=== PATIENT | female | born 1965 | race Caucasian/White ===

== ENCOUNTER 2017-12-27 06:03 | Day surgery (SDC) | payer OTHER ==
[~2017-12-27 06:03] MED LIST: Lactated Ringers 1,000 ML IV SCH
[2017-12-27] MEDS ORDERED: DIPRIVAN 200 MG/20 ML IV ONE (06:04)
[2017-12-27] MEDS ORDERED: Versed 2 MG/2 ML Injection IV ONE (06:04)
[2017-12-27] MEDS ORDERED: Lactated Ringers 1,000 ML IV ONE (06:04)
--- NOTE | 2017-12-27 08:45 | OP ---
SURGERY DATE/TIME: 12/27/2017 0757 PREOPERATIVE DIAGNOSIS: Screening exam. POSTOPERATIVE DIAGNOSIS: Normal colon. PROCEDURE: Colonoscopy. SURGEON: Dr. Harden. ANESTHESIA: MAC. Medications given by anesthesia department. HISTORY: The patient is a 52 year-old white female presenting now for screening colonoscopy. She was appraised of the risks of the procedure including the risk of perforation, phlebitis, untoward reaction to medication, bleeding and missed lesions. The patient verbalized her understanding and desired to have the procedure performed. DESCRIPTION OF PROCEDURE: The patient was given the medications by the anesthesia department. She had continuous pulse oximetry, ECG monitoring, intermittent blood pressure monitoring, and tidal CO2 monitoring during the examination. She was placed in the left lateral decubitus position. A digital rectal examination was performed and revealed normal anal sphincter tone and no masses. The flexible Olympus pediatric colonoscope was used to intubate the rectum. A view of the colon was developed sequentially to the cecum. Upon insertion and withdrawal, including a retroflex view in the rectum, no mucosal lesions were encountered. The scope was removed from the patient who tolerated the procedure well and was sent back to OP recovery in good condition. The prep was noted to be fair to good.
[2017-12-27 10:24] VITALS: O2SAT 98
[2017-12-27 10:34] VITALS: BP 181/87; PULSE 77
[2017-12-27 11:06] LABS: ANION GAP 12.6 MEQ/L (5-15); BLOOD UREA NITROGEN 11 mg/dl (7-17); CHLORIDE 102 mEq/L (98-107); Calcium 9.1 mg/dL (8.4-10.2); Carbon Dioxide 29 mmol/L (22-30); Cholesterol 202 mg/dl (50-200); Creatinine 1 0.85 mg/dl (0.52-1.04); Glucose 115 mg/dL (74-106); HDL CHOLESTEROL 46 mg/dl (40-60); Potassium 4.5 mmol/L (3.5-5.1); Risk Ratio 4.4; SODIUM 139 mmol/L (137-145); TRIGLYCERIDE 143 mg/dl (30-150)
[2017-12-27 11:16] LABS: LDL, DIRECT 120.45 mg/dL (30-100)
== END 2017-12-27 09:30 | disposition home or self-care (01) ==
LOC: SDC 06:03
PROVIDERS: ATTEND Family Medicine
PROC: 0DJD8ZZ Inspection of Lower Intestinal Tract, Via Natural or Artificial Opening Endoscopic (ICD-10-PCS; principal; 2017-12-27)
DX: Z12.11 Encounter for screening for malignant neoplasm of colon (principal); I10 Essential (primary) hypertension
CPT/HCPCS: 36415; 80048; 80061; 83721; J2250; J2704

== ENCOUNTER 2018-07-12 07:39 | Emergency (ER) | payer OTHER ==
[2018-07-12] MEDS ORDERED: solu-MEDROL 125 MG IV ONE (07:56)
[2018-07-12] MEDS ORDERED: DUONEB 0.5-3 MG/3 ml Neb IH ONE ×2 (07:56→08:08)
--- NOTE | 2018-07-12 07:56 | ERPHSYRPT ---
- History of Present Illness Time Seen by Provider: 07/12/18 07:52 Source: patient Exam Limitations: no limitations Patient Subjective Stated Complaint: patient experiencing shortness of breath this mornign has been having trouble for two days using nebulizers treatments at home and this morning it got reall bad Triage Nursing Assessment: pt alert and orietnedx3, able to ambualte by self skin warm and diaphoretic and intact. pupils perra 2, lung sounds some wheezes on right side on expiration. Physician History: The patient is a 53-year-old female who has worsening cough and shortness of breath for 3 days. Today it is particularly bad with shortness of breath. Pt took an albuterol neb 3 hrs ago without relief. She has a history of asthma. She smokes cigarettes. She has not smoked now for 3 days. She denies chest pain. She denies fever. Her past medical history is significant for asthma, hypertension, diabetes, and anxiety. Timing/Duration: day(s) (3), gradual onset, worse Activities at Onset: none Severity of Dyspnea-Max: moderate Severity of Dyspnea-Current: moderate Possible Cause: occasional episodes, smoke exposure Modifying Factors: Improves With: albuterol nebulizer Associated Symptoms: cough, tightness Allergies/Adverse Reactions: Sulfa (Sulfonamide Antibiotics) [Sulfa(Sulfonamide Antibiotics)] Allergy ( Verified 12/27/17 06:28) sumatriptan [From Imitrex] Allergy (Verified 12/27/17 06:28) Home Medications: Albuterol Sulfate [Proair Hfa] 8.5 gm IH 5XD 05/26/15 [History] Alprazolam 0.25 mg [xanAX 0.25 MG] 0.25 mg PO TIDPRN 05/26/15 [History] Black Cohosh 40 mg PO BID 05/26/15 [History] Paroxetine HCl [Paxil Cr] 37.5 mg PO DAILY 05/26/15 [History] Benazepril HCl [Lotensin] 20 mg PO DAILY 12/19/17 [History] Lactobacillus Combo No.10 [Probiotic] 1 each PO DAILY 12/19/17 [History] Nifedipine [Nifedipine ER] 90 mg PO DAILY 12/19/17 [History] Metformin HCl 500 mg [Glucophage 500 MG] 500 mg PO BIDWM 07/12/18 [History ] Hx Tetanus, Diphtheria Vaccination/Date Given: Yes Hx Influenza Vaccination/Date Given: No Hx Pneumococcal Vaccination/Date Given: No Immunizations Up to Date: Yes - Review of Systems Constitutional: No Fever, No Chills Eyes: No Symptoms Ears, Nose, & Throat: No Symptoms Respiratory: Cough, Dyspnea, Dyspnea on Exertion (ANTHONY), Wheezing Cardiac: No Chest Pain, No Edema, No Syncope Abdominal/Gastrointestinal: No Abdominal Pain, No Nausea, No Vomiting, No Diarrhea Genitourinary Symptoms: No Dysuria Musculoskeletal: No Back Pain, No Neck Pain Skin: No Rash Neurological: No Dizziness, No Focal Weakness, No Sensory Changes Psychological: No Symptoms Endocrine: No Symptoms Hematologic/Lymphatic: No Symptoms Immunological/Allergic: No Symptoms All Other Systems: Reviewed and Negative - Past Medical History Pertinent Past Medical History: Yes Neurological History: Epilepsy, Migraines ENT History: No Pertinent History Cardiac History: Hypertension Respiratory History: Asthma Endocrine Medical History: No Pertinent History Musculoskeletal History: Osteoarthritis GI Medical History: No Pertinent History History: No Pertinent History Psycho-Social History: Depression Female Reproductive Disorders: No Pertinent History Other Medical History: L knee replacement - Past Surgical History Past Surgical History: Yes Neuro Surgical History: No Pertinent History Cardiac: No Pertinent History Respiratory: No Pertinent History Gastrointestinal: Cholecystectomy Genitourinary: No Pertinent History Musculoskeletal: Orthopedic Surgery Female Surgical History: Section, Hysterectomy Other Surgical History: L KNEE REPLACEMENT - Social History Smoking Status: Current every day smoker How long have you smoked: 20 YEARS Exposure to second hand smoke: Yes Alcohol Use: Socially Drug Use: none Patient Lives Alone: No Significant Family History: other - Female History Hx Now: No - Nursing Vital Signs Nursing Vital Signs: Initial Vital Signs Temperature 97.4 F 07/12/18 07:40 Respiratory Rate 26 H 07/12/18 07:40 Blood Pressure 173/128 07/12/18 07:40 O2 Sat by Pulse Oximetry 98 07/12/18 07:40 Pain Scale Pain Intensity 0 - Physical Exam General Appearance: mild distress Eye Exam: PERRL/EOMI Ears, Nose, Throat Exam: hearing grossly normal Neck Exam: normal inspection, supple Respiratory Exam: diminished breath sounds, prolonged expirations Cardiovascular/Chest Exam: normal heart sounds, regular rate/rhythm Abdominal/Gastrointestinal Exam: soft, No tenderness, No distention, No mass Rectal Exam: not done Extremity Exam: non-tender, normal range of motion, normal inspection, no calf tenderness, no pedal edema Neurologic Exam: alert, oriented x 3, cooperative, mirror machine feeder II-XII nml as tested, sensation nml, No motor deficits Skin Exam: normal color, warm, No dry, No cyanosis, No diaphoresis SpO2 Interpretation: normal SpO2: 98 Oxygen Delivery: Room Air - Radiology Exams Chest X-ray Interpretation: Interpreted by me, Negative (comp AP chest 03/11/14.) Ordered Tests: Active Orders 24 hr Category Date Time Status Parts Salesperson STAT Care 07/12/18 07:57 Ordered IV Insertion STAT Care 07/12/18 07:56 Ordered Oxygen-ED Only NASAL CANNULA 2 lpm Care 07/12/18 07:56 Ordered Pulse Oximetry (ED) STAT Care 07/12/18 07:56 Ordered CHEST 2 VIEWS (PA AND LAT) Stat Exams 07/12/18 07:56 Ordered CBC W DIFF Stat Lab 07/12/18 07:56 Ordered CMP Stat Lab 07/12/18 07:56 Ordered NT PRO BNP Stat Lab 07/12/18 07:56 Ordered TROPONIN Q3H Lab 07/12/18 08:00 Ordered TROPONIN Q3H Lab 07/12/18 11:00 Ordered TROPONIN Q3H Lab 07/12/18 14:00 Ordered TROPONIN Q3H Lab 07/12/18 17:00 Ordered TROPONIN Q3H Lab 07/12/18 20:00 Ordered Peak Expiratory Flow Rate ONCE RT 07/12/18 08:13 Completed Respiratory Nebulizer STAT RT 07/12/18 07:57 Ordered Respiratory Therapy Assessment DAILY RT 07/12/18 08:13 Completed Medication Summary Generic Name Dose Route Start Last Admin Trade Name Freq PRN Reason Stop Dose Admin Benazepril HCl 20 mg 07/12/18 09:01 Lotensin 10 Mg PO 07/12/18 09:02 QAM STA Discontinued Medications Generic Name Dose Route Start Last Admin Trade Name Freq PRN Reason Stop Dose Admin Albuterol/Ipratropium 3 ml 07/12/18 07:56 07/12/18 08:12 Duoneb 0.5-3 Mg/3 Ml Neb IH 07/12/18 07:57 3 ml STAT ONE Administration Albuterol/Ipratropium Confirm 07/12/18 08:08 Duoneb 0.5-3 Mg/3 Ml Neb Administered 07/12/18 08:09 Dose 3 ml IH .STK-MED ONE Methylprednisolone Sodium Succinate 125 mg 07/12/18 07:56 07/12/18 08:06 Solu-Medrol 125 Mg IV 07/12/18 07:57 125 mg STAT ONE Administration Methylprednisolone Sodium Succinate Confirm 07/12/18 08:03 Solu-Medrol 125 Mg Administered 07/12/18 08:04 Dose 125 mg .ROUTE .STK-MED ONE Lab/Rad Data: Laboratory Result Diagrams 07/12/18 08:00 07/12/18 08:00 Laboratory Results 07/12/18 07/12/18 07/12/18 Range/Units 08:00 08:00 08:00 WBC 8.8 (4.0-10.5) K/mm3 RBC 4.96 (4.1-5.4) M/mm3 Hgb 13.8 (12.0-16.0) gm/dl Hct 42.9 (35-47) % MCV 86.5 (78-100) fl MCH 27.8 (26-32) pg MCHC 32.2 (32-36) g/dl RDW 15.5 H (11.5-14.0) % Plt Count 271 (150-450) K/mm3 MPV 8.9 (6-9.5) fl Gran % 65.5 (36.0-66.0) % Eos # (Auto) 0.51 H (0-0.5) Absolute Lymphs (auto) 1.85 (1.0-4.6) Absolute Monos (auto) 0.67 (0.0-1.3) Lymphocytes % 21.0 L (24.0-44.0) % Monocytes % 7.6 (0.0-12.0) % Eosinophils % 5.8 H (0.00-5.0) % Basophils % 0.1 (0.0-0.4) % Absolute Granulocytes 5.79 (1.4-6.9) Basophils # 0.01 (0-0.4) Sodium 138 (137-145) mmol/L Potassium 3.5 (3.5-5.1) mmol/L Chloride 100 (98-107) mmol/L Carbon Dioxide 28 (22-30) mmol/L Anion Gap 13.0 (5-15) MEQ/L BUN 7 (7-17) mg/dL Creatinine 0.77 (0.52-1.04) mg/dL Estimated GFR > 60.0 ML/MIN Glucose 184 H (74-106) mg/dL Calcium 8.5 (8.4-10.2) mg/dL Total Bilirubin 0.50 (0.2-1.3) mg/dL AST 15 (14-36) U/L ALT 16 (0-35) U/L Alkaline Phosphatase 146 H (38-126) U/L Troponin I < 0.012 (0.000-0.034) ng/mL NT-Pro-B Natriuret Pep 766 (0-900) pg/mL Serum Total Protein 7.2 (6.3-8.2) g/dL Albumin 3.9 (3.5-5.0) g/dL - Progress Progress: improved Air Movement: good Progress Note: 07/12/18 09:02 Pt given duo neb treatment and solumedrol 125 mg IV. Pt breathing has improved. Blood Culture(s) Obtained: No Antibiotics given: No Counseled pt/family regarding: lab results, diagnosis, need for follow-up, rad results - Departure Time of Disposition: 09: Departure Disposition: Home Clinical Impression: Asthma exacerbation, Hypertension Condition: Stable Critical Care Time: No Referrals: ALEC EL [Primary Care Provider] - Additional Instructions: You have an exacerbation of asthma. You were given a DuoNeb treatment and Solu- Medrol 125 mg IV in the ER. Your blood pressure was also elevated this morning because you did not take your daily medicines for high blood pressure. You were given been as well 20 mg orally in the ER. Take prednisone 60 mg daily for 5 days and take ciprofloxacin 500 mg 2 times a day for 7 days. Follow-up on Saturday with your primary medical doctor. Prescriptions: Ciprofloxacin [Cipro 500 MG] 1 tab PO BID #14 tablet Prednisone 20 mg [Deltasone 20 mg] 3 tab PO DAILY #15 tablet
[2018-07-12] MEDS ORDERED: solu-MEDROL 125 MG ONE (08:03)
[2018-07-12 08:08] LABS: BASOPHIL % 0.1 % (0.0-0.4); Basophil (Absolute #) 0.01 (0-0.4); Eosinophil % 5.8 % (0.00-5.0); Eosinophil (Absolute #) 0.51 (0-0.5); Granulocyte Absolute (ANC) 5.79 (1.4-6.9); Granulocytes % 65.5 % (36.0-66.0); Hematocrit 42.9 % (35-47); Hemoglobin 13.8 gm/dl (12.0-16.0); Lymphocyte (Absolute #) 1.85 (1.0-4.6); Mean Cell Volume 86.5 fl (78-100); Mean Corpuscular Hemoglobin 27.8 pg (26-32); Mean Corpuscular Hgb Concent. 32.2 g/dl (32-36); Mean Platelet Volume 8.9 fl (6-9.5); Monocyte (Absolute #) 0.67 (0.0-1.3); Monocytes % 7.6 % (0.0-12.0); Platelet Count 271 K/mm3 (150-450); Red Blood Count 4.96 M/mm3 (4.1-5.4); Red Cell Distribution Width 15.5 % (11.5-14.0); White Blood Count 8.8 K/mm3 (4.0-10.5)
[2018-07-12 08:36] LABS: SGPT/ALT 16 U/L (0-35)
[2018-07-12 08:38] LABS: ALBUMIN 3.9 g/dL (3.5-5.0); ALKALINE PHOSPHATASE 146 U/L (38-126); BLOOD UREA NITROGEN 7 mg/dL (7-17); CHLORIDE 100 mmol/L (98-107); Calcium 8.5 mg/dL (8.4-10.2); Carbon Dioxide 28 mmol/L (22-30); Creatinine 1 0.77 mg/dL (0.52-1.04); Glucose 184 mg/dL (74-106); NT PRO BNP 766 pg/mL (0-900); Potassium 3.5 mmol/L (3.5-5.1); SGOT/AST 15 U/L (14-36); SODIUM 138 mmol/L (137-145); Total Protein 7.2 g/dL (6.3-8.2)
[2018-07-12 08:53] VITALS: O2SAT 98
[2018-07-12] MEDS ORDERED: Lotensin 10 MG PO STA (09:01)
[2018-07-12 09:41] VITALS: BP 207/119; PULSE 83
--- NOTE | 2018-07-12 22:03 | XRAY ---
Indication: Short of breath. Comparison: March 11, 2014. PA/lateral chest again demonstrates normal heart and lungs. Bony thorax intact again with chronic distal left clavicle deformity. Impression: Stable nonacute chest.
== END 2018-07-12 10:25 | disposition home or self-care (01) ==
LOC: ED 07:39
DX: J45.901 Unspecified asthma with (acute) exacerbation (principal); I10 Essential (primary) hypertension; Z79.899 Other long term (current) drug therapy
CPT/HCPCS: 36000; 36415; 71046; 80053; 82962; 83880; 84484; 85025; 93041; 94150; 94640; 96374; 99284; J2930; A9270-GY

== ENCOUNTER 2019-10-30 01:12 | Observation (INO) | payer OTHER ==
[2019-10-30] MEDS ORDERED: BABY ASPIRIN 81 MG CHEW PO ONE (01:37)
[2019-10-30] MEDS ORDERED: Zofran 4 MG/2 ML VIAL IV ONE (01:37)
[2019-10-30] MEDS ORDERED: Sodium Chloride 0.9% 1000 ML 1,000 ML IV STA (01:37)
[2019-10-30] MEDS ORDERED: MORPHINE SULFATE 4 MG INJ IV ONE (01:37)
[2019-10-30] MEDS ORDERED: EPINEPHRINE 1MG/ML AMP IM ONE (01:39)
[2019-10-30] MEDS ORDERED: MOTRIN 600 MG PO ONE (01:51)
[2019-10-30] MEDS ORDERED: TYLENOL EXTRA STRENGTH 500 MG PO STA (01:51)
--- NOTE | 2019-10-30 01:53 | ERPHSYRPT ---
- History of Present Illness Time Seen by Provider: 10/30/19 01:24 Patient Subjective Stated Complaint: pt had headache, fever, vomiting Triage Nursing Assessment: pt c/o "feeling terrible x2 days". Went to [facility] today, positive for Flu A. Pt c/o vomiting x2 hours, headache, temp, gen aches and pain. Lungs clear, heart tones reg, abd lg and soft with active bs x4 quad. Pt has lg welps to arms, back, chest, feet....possible allergic reaction to Tamiflu. Physician History: Patient is here for flu symptoms. She was dx with flu A on swab earlier today. She was started on steroids and tamiflu. She has had continued symptoms with possible allergic reaction. She has large urticaria over her back, arms, and shoulders. She continued to feel worse tonight with vomiting and presented to the ED. Location: generalized Quality: malaise Radiation: none Severity: moderate Duration: 2 days Timing: gradual Modifying factors/associated signs and symptoms: tamiflu, steroids, albuterol Timing/Duration: yesterday Severity: moderate Allergies/Adverse Reactions: Sulfa (Sulfonamide Antibiotics) [Sulfa(Sulfonamide Antibiotics)] Allergy ( Verified 12/27/17 06:28) sumatriptan [From Imitrex] Allergy (Verified 12/27/17 06:28) Home Medications: Albuterol Sulfate [Proair Hfa] 8.5 gm IH 5XD 05/26/15 [History] Alprazolam 0.25 mg [xanAX 0.25 MG] 0.25 mg PO TIDPRN 05/26/15 [History] Paroxetine HCl [Paxil Cr] 37.5 mg PO DAILY 05/26/15 [History] Benazepril HCl [Lotensin] 20 mg PO DAILY 12/19/17 [History] Nifedipine [Nifedipine ER] 90 mg PO DAILY 12/19/17 [History] Hx Tetanus, Diphtheria Vaccination/Date Given: Yes Hx Influenza Vaccination/Date Given: No Hx Pneumococcal Vaccination/Date Given: No Immunizations Up to Date: Yes - Review of Systems Constitutional: Fever, Chills, Malaise Eyes: No Symptoms Ears, Nose, & Throat: No Symptoms Respiratory: No Cough, No Dyspnea Cardiac: No Chest Pain, No Edema, No Syncope Abdominal/Gastrointestinal: Nausea, Vomiting, No Abdominal Pain, No Diarrhea Genitourinary Symptoms: No Dysuria Musculoskeletal: No Back Pain, No Neck Pain Skin: No Rash Neurological: No Dizziness, No Focal Weakness, No Sensory Changes Psychological: No Symptoms Endocrine: No Symptoms All Other Systems: Reviewed and Negative - Past Medical History Pertinent Past Medical History: Yes Neurological History: Epilepsy, Migraines ENT History: No Pertinent History Cardiac History: Hypertension Respiratory History: Asthma Endocrine Medical History: Diabetes Type II Musculoskeletal History: Osteoarthritis GI Medical History: No Pertinent History History: No Pertinent History Psycho-Social History: Depression Female Reproductive Disorders: No Pertinent History Other Medical History: bilat knee replacement - Past Surgical History Past Surgical History: Yes Neuro Surgical History: No Pertinent History Cardiac: No Pertinent History Respiratory: No Pertinent History Gastrointestinal: Cholecystectomy Genitourinary: No Pertinent History Musculoskeletal: Orthopedic Surgery Female Surgical History: Section, Hysterectomy Other Surgical History: bilat KNEE REPLACEMENT - Social History Smoking Status: Current every day smoker How long have you smoked: 20 yrs Exposure to second hand smoke: Yes Alcohol Use: Socially Drug Use: none Patient Lives Alone: No Significant Family History: other - Female History Hx Last Menstrual Period: hysterectomy Hx Now: No - Nursing Vital Signs Nursing Vital Signs: Initial Vital Signs Temperature 102.1 F 10/30/19 01:19 Pulse Rate 91 H 10/30/19 01:19 Respiratory Rate 21 10/30/19 01:19 Blood Pressure 184/117 10/30/19 01:19 O2 Sat by Pulse Oximetry 95 10/30/19 01:19 Pain Scale Pain Intensity 5 - Physical Exam General Appearance: no apparent distress, alert Eye Exam: PERRL/EOMI, eyes nml inspection Ears, Nose, Throat Exam: normal ENT inspection, TMs normal, pharynx normal, moist mucous membranes Neck Exam: normal inspection, non-tender, supple, full range of motion Respiratory Exam: normal breath sounds, lungs clear, No respiratory distress Cardiovascular Exam: regular rate/rhythm, normal heart sounds, normal peripheral pulses Gastrointestinal/Abdomen Exam: soft, normal bowel sounds, No tenderness, No mass Back Exam: normal inspection, normal range of motion, No CVA tenderness, No vertebral tenderness Extremity Exam: normal inspection, normal range of motion, pelvis stable Neurologic Exam: alert, oriented x 3, cooperative, normal mood/affect, nml cerebellar function, nml station & gait, sensation nml, No motor deficits Skin Exam: normal color, warm, dry, No rash Lymphatic Exam: No adenopathy SpO2: 95 Comments: 10/30/19 01:52 Mental status:The patient is alert, attentive, and oriented. Speech: clear and fluent with good repetition, comprehension, and naming. Cranial nerves: Motor: There is no pronator drift of out-stretched arms. Muscle bulk and tone are normal. Strength is full bilaterally. Reflexes: Reflexes are 2+ and symmetric at the biceps, triceps, knees, and ankles. Plantar responses are flexor. Sensory: Light touch sense are intact in bilateral upper and lower extremities. There is no sign of neglect. Coordination: Rapid alternating movements are intact. There is no dysmetria on [id number] and [id number]. There are no abnormal or extraneous movements. Romberg is absent. Gait/Stance: Posture is normal. Gait is steady with normal steps, base, arm swing, and turning. Heel and toe walking are normal. Tandem gait is normal. No obvious deformity, sensation intact, 2+ capillary refill, 2 point tactile discrimination intact. 5 out of 5 strength. Full range of motion without pain. Compartments are soft, nontender. Overlying skin shows no tenting, bruising, ecchymosis. Patient has urticaria throughout back, shoulders, and abdomen - Course EKG Interpreted by Me: Sinus Rhythm, Right Bundle Branch Block Ordered Tests: Active Orders 24 hr Category Date Time Status Home Health Rn STAT Care 10/30/19 01:38 Active EKG-ER Only STAT Care 10/30/19 01:37 Active IV Insertion STAT Care 10/30/19 01:37 Active Pulse Oximetry (ED) STAT Care 10/30/19 01:37 Active CHEST 2 VIEWS (PA AND LAT) Stat Exams 10/30/19 02:24 Taken CBC W DIFF Stat Lab 10/30/19 02:03 Completed CMP Stat Lab 10/30/19 02:03 Completed NT PRO BNP Stat Lab 10/30/19 02:03 Completed TROPONIN Q3H Lab 10/30/19 02:03 Completed TROPONIN Q3H Lab 10/30/19 04:45 Ordered TROPONIN Q3H Lab 10/30/19 07:45 Ordered TROPONIN Q3H Lab 10/30/19 10:45 Ordered TROPONIN Q3H Lab 10/30/19 13:45 Ordered Medication Summary Discontinued Medications Generic Name Dose Route Start Last Admin Trade Name Freq PRN Reason Stop Dose Admin Acetaminophen 1,000 mg 10/30/19 01:51 10/30/19 02:06 Tylenol Extra Strength 500 Mg PO 10/30/19 01:52 1,000 mg STAT STA Administration Acetaminophen Confirm 10/30/19 02:02 Tylenol Extra Strength 500 Mg Administered 10/30/19 02:03 Dose 1,000 mg .ROUTE .STK-MED ONE Aspirin 324 mg 10/30/19 01:37 10/30/19 02:07 Baby Aspirin 81 Mg Chew PO 10/30/19 01:38 324 mg STAT ONE Administration Aspirin Confirm 10/30/19 02:02 Baby Aspirin 81 Mg Chew Administered 10/30/19 02:03 Dose 324 mg .ROUTE .STK-MED ONE Epinephrine HCl 0.3 mg 10/30/19 01:39 10/30/19 02:08 Epinephrine 1mg/Ml Amp IM 10/30/19 01:40 0.3 mg STAT ONE Administration Epinephrine HCl Confirm 10/30/19 02:03 Epinephrine 1mg/Ml Amp Administered 10/30/19 02:04 Dose 1 mg .ROUTE .STK-MED ONE Sodium Chloride 1,000 mls @ 999 mls/hr 10/30/19 01:37 10/30/19 02:06 Sodium Chloride 0.9% 1000 Ml IV 10/30/19 02:37 999 mls/hr .Q1H1M STA Administration Sodium Chloride Confirm 10/30/19 02:03 Sodium Chloride 0.9% 1000 Ml Administered 10/30/19 02:04 Dose 1,000 mls @ ud .ROUTE .STK-MED ONE Ibuprofen 600 mg 10/30/19 01:51 10/30/19 02:06 Motrin 600 Mg PO 10/30/19 01:52 600 mg STAT ONE Administration Ibuprofen Confirm 10/30/19 02:03 Motrin 600 Mg Administered 10/30/19 02:04 Dose 600 mg .ROUTE .STK-MED ONE Morphine Sulfate 4 mg 10/30/19 01:37 10/30/19 02:08 Morphine Sulfate 4 Mg Inj IV 10/30/19 01:38 4 mg STAT ONE Administration Morphine Sulfate Confirm 10/30/19 02:03 Morphine Sulfate 4 Mg Inj Administered 10/30/19 02:04 Dose 4 mg .ROUTE .STK-MED ONE Ondansetron HCl 4 mg 10/30/19 01:37 10/30/19 02:04 Zofran 4 Mg/2 Ml Vial IV 10/30/19 01:38 4 mg STAT ONE Administration Ondansetron HCl Confirm 10/30/19 02:02 Zofran 4 Mg/2 Ml Vial Administered 10/30/19 02:03 Dose 4 mg .ROUTE .STK-MED ONE Lab/Rad Data: Laboratory Result Diagrams 10/30/19 02:03 10/30/19 02:03 Laboratory Results 10/30/19 10/30/19 10/30/19 Range/Units 02:03 02:03 02:03 WBC 6.2 (4.0-10.5) K/mm3 RBC 4.76 (4.1-5.4) M/mm3 Hgb 13.2 (12.0-16.0) gm/dl Hct 41.5 (35-47) % MCV 87.2 (78-100) fl MCH 27.7 (26-32) pg MCHC 31.8 L (32-36) g/dl RDW 15.1 H (11.5-14.0) % Plt Count 235 (150-450) K/mm3 MPV 9.3 (7.5-11.0) fl Gran % 86.4 H (36.0-66.0) % Eos # (Auto) 0.01 (0-0.5) Absolute Lymphs (auto) 0.38 L (1.0-4.6) Absolute Monos (auto) 0.44 (0.0-1.3) Lymphocytes % 6.1 L (24.0-44.0) % Monocytes % 7.1 (0.0-12.0) % Eosinophils % 0.2 (0.00-5.0) % Basophils % 0.2 (0.0-0.4) % Absolute Granulocytes 5.38 (1.4-6.9) Basophils # 0.01 (0-0.4) Sodium 133 L (137-145) mmol/L Potassium 3.6 (3.5-5.1) mmol/L Chloride 96 L (98-107) mmol/L Carbon Dioxide 29 (22-30) mmol/L Anion Gap 11.6 (5-15) MEQ/L BUN 14 (7-17) mg/dL Creatinine 1.00 (0.52-1.04) mg/dL Estimated GFR > 60.0 ML/MIN Glucose 133 H (74-106) mg/dL Calcium 8.3 L (8.4-10.2) mg/dL Total Bilirubin 0.50 (0.2-1.3) mg/dL AST 32 (14-36) U/L ALT 15 (0-35) U/L Alkaline Phosphatase 138 H (38-126) U/L Troponin I 0.017 (0.000-0.034) ng/mL NT-Pro-B Natriuret Pep 1160 H (0-900) pg/mL Serum Total Protein 7.8 (6.3-8.2) g/dL Albumin 3.9 (3.5-5.0) g/dL - Progress Progress Note: 10/30/19 01:53 We will give IM epi for urticaria. Patient is also on an WILLIAM inhibitor, Benazepril. She started tamiflu today. Patient may be allergic to either on of these. However, there is no angioedema or other obvious facial swelling. But, it will still be my recommendation patient never again take a WILLIAM inhibitor due to the possibility of allergy and associated with WILLIAM inhibitor angioedema. - We'll obtain basic labs, fluids, EKG, troponin, chest x-ray - I feel comfortable with one time negative troponin given symptoms have improved and started greater then 6 hours ago. - EKG shows no ST changes, RBBB (old) - my read. See full read below. - O2 saturations consistently greater than 95% on 2L. Originally, 86% on RA - CXR shows no pneumonia, pneumothorax - my read 10/30/19 03:06 Given that patient is hypoxic, we will admit here to the hospital. Urticaria improved. Patient continues to have no angioedema or facial swelling. I discussed with Dr. Harden over the phone. He will admit patient. Discussed with : Zeb Will see patient in: hospital (observation) Counseled pt/family regarding: lab results, diagnosis - Departure Departure Disposition: Home, Observation Clinical Impression: Influenza A Condition: Stable Critical Care Time: No Referrals: ALEC HARDEN [Primary Care Provider] -
[2019-10-30] MEDS ORDERED: TYLENOL EXTRA STRENGTH 500 MG ONE (02:02)
[2019-10-30] MEDS ORDERED: Zofran 4 MG/2 ML VIAL ONE (02:02)
[2019-10-30] MEDS ORDERED: BABY ASPIRIN 81 MG CHEW ONE (02:02)
[2019-10-30] MEDS ORDERED: EPINEPHRINE 1MG/ML AMP ONE (02:03)
[2019-10-30] MEDS ORDERED: MOTRIN 600 MG ONE (02:03)
[2019-10-30] MEDS ORDERED: Sodium Chloride 0.9% 1000 ML 1,000 ML ONE (02:03)
[2019-10-30] MEDS ORDERED: MORPHINE SULFATE 4 MG INJ ONE (02:03)
[2019-10-30 02:05] LABS: Absolute Neutrophil Ct (ANC) 5.38 (1.4-6.9); BASOPHIL % 0.2 % (0.0-0.4); Basophil (Absolute #) 0.01 (0-0.4); Eosinophil % 0.2 % (0.00-5.0); Eosinophil (Absolute #) 0.01 (0-0.5); Hematocrit 41.5 % (35-47); Hemoglobin 13.2 gm/dl (12.0-16.0); Lymphocyte (Absolute #) 0.38 (1.0-4.6); Lymphocytes % 6.1 % (24.0-44.0); Mean Cell Volume 87.2 fl (78-100); Mean Corpuscular Hemoglobin 27.7 pg (26-32); Mean Corpuscular Hgb Concent. 31.8 g/dl (32-36); Mean Platelet Volume 9.3 fl (7.5-11.0); Monocyte (Absolute #) 0.44 (0.0-1.3); Monocytes % 7.1 % (0.0-12.0); Neutrophil % 86.4 % (36.0-66.0); Platelet Count 235 K/mm3 (150-450); Red Blood Count 4.76 M/mm3 (4.1-5.4); Red Cell Distribution Width 15.1 % (11.5-14.0); White Blood Count 6.2 K/mm3 (4.0-10.5)
[2019-10-30 02:33] LABS: ALBUMIN 3.9 g/dL (3.5-5.0); ALKALINE PHOSPHATASE 138 U/L (38-126); ANION GAP 11.6 MEQ/L (5-15); BLOOD UREA NITROGEN 14 mg/dL (7-17); CHLORIDE 96 mmol/L (98-107); Calcium 8.3 mg/dL (8.4-10.2); Carbon Dioxide 29 mmol/L (22-30); Glucose 133 mg/dL (74-106); NT PRO BNP 1160 pg/mL (0-900); Potassium 3.6 mmol/L (3.5-5.1); SGOT/AST 32 U/L (14-36); SGPT/ALT 15 U/L (0-35); SODIUM 133 mmol/L (137-145); Total Protein 7.8 g/dL (6.3-8.2)
[2019-10-30] MEDS ORDERED: TYLENOL 325 MG PO PRN (03:56)
[2019-10-30] MEDS ORDERED: Zofran 4 MG/2 ML VIAL IV PRN (03:56)
[2019-10-30] MEDS ORDERED: TORAdol 30 mg Injection IV PRN (03:56)
[2019-10-30 05:05] LABS: Hematocrit 39.2 % (35-47); Hemoglobin 12.3 gm/dl (12.0-16.0); Mean Cell Volume 87.9 fl (78-100); Mean Corpuscular Hemoglobin 27.6 pg (26-32); Mean Corpuscular Hgb Concent. 31.4 g/dl (32-36); Mean Platelet Volume 9.3 fl (7.5-11.0); Platelet Count 214 K/mm3 (150-450); Red Blood Count 4.46 M/mm3 (4.1-5.4); Red Cell Distribution Width 15.2 % (11.5-14.0); White Blood Count 5.4 K/mm3 (4.0-10.5)
[2019-10-30 05:11] LABS: ALBUMIN 3.2 g/dL (3.5-5.0); ANION GAP 9.7 MEQ/L (5-15); BILIRUBIN,TOTAL 0.9 mg/dL (0.2-1.3); Calcium 7.8 mg/dL (8.4-10.2); Creatinine 1 1.08 mg/dL (0.52-1.04); Potassium 3.1 mmol/L (3.5-5.1); Total Protein 6.6 g/dL (6.3-8.2)
[2019-10-30 05:15] LABS: Slide Review 1 YES
[2019-10-30] MEDS ORDERED: PROVENTIL COMMON CANISTER IH PRN (05:17)
[2019-10-30 06:55] LABS: BAND 7 % (0.0-2.0); Lymphocytes 4 % (24-44); Monocyte 1 % (0.0-12.0); Neutrophils 88 % (36.0-66.0); Total Cells Counted 100
[2019-10-30 06:56] LABS: Platelet Estimate NORMAL (NORMAL)
--- NOTE | 2019-10-30 08:38 | HP ---
CHIEF COMPLAINT: Fever, headache, vomiting. HISTORY OF PRESENT ILLNESS: The patient is a 54 year-old white female who was seen in the [facility] and diagnosed with influenza A. The patient has been started on Tamiflu but progressively got worse being short of breath. She was seen in the emergency room and found to have oxygen saturation in the mid 80's and subsequently admitted to the hospital for management and oxygen support. The patient has reported since taking Tamiflu that she developed hives and concern for the possibility that she is allergic to Tamiflu. The patient did have an influenza vaccination earlier in the year. She does have a previous history of asthma problems. PAST MEDICAL HISTORY: Otherwise significant for diabetes mellitus type 2, obesity, hypertension, osteoarthritis and depression. PAST SURGICAL HISTORY: Bilateral knee replacement. She had section, hysterectomy and cholecystectomy. PHYSICAL EXAMINATION: The patient's vital signs on admission showed temperature 102.1F, pulse 91, respiratory rate 21 and blood pressure 184/117. O2 saturation was 95% on supplemental oxygen. HEENT: Normocephalic, atraumatic. Pupils equal round reactive to light. Extraocular movements intact. Oropharynx is dry. NECK: Supple without lymphadenopathy, thyromegaly or JVD. CHEST: Revealed rales and rhonchi bilaterally in the bases. HEART: Regular rate and rhythm. ABDOMEN: Soft. No palpable masses. EXTREMITIES: Without cyanosis, clubbing or edema. NEUROLOGIC: The patient is currently alert and oriented x3 and in no obvious distress. LAB DATA AND TESTS: The patient's laboratory studies had shown a white count of 6,200, hemoglobin 13.2, PLT 235,000. Glucose 133 nonfasting, BUN 14, creatinine 1.0. Electrolytes showed sodium to be slightly low at 133. Her ProBNP was elevated at 1,160. Alkaline phosphatase slightly elevated at 138. Troponin was 0.017. The patient otherwise had EKG showing a right bundle branch block type pattern, was in sinus rhythm but at rate of 81 and no obvious acute changes are noted otherwise. ASSESSMENT: A patient with influenza A with respiratory decompensation with O2 saturations low initially. We are now supporting her with oxygen and fluids and we will discontinue the Tamiflu due to the hives and she will be receiving Benadryl and Solu-Medrol at 80 mg IV every 8 hours. She will receive nebulizer treatments and incentive spirometry. She will continue her usual home medications otherwise which include Alprazolam 0.25 mg t.i.d. PRN anxiety, Benazepril 20 mg daily, Nifedipine Extended Release 90 mg daily, Paroxetine Extended Release 20 mg daily.
[2019-10-30] MEDS ORDERED: xanAX 0.25 MG PO PRN (09:00)
--- NOTE | 2019-10-30 09:11 | XRAY ---
Indication: Fever, cough, and flu symptoms. Comparison: July 12, 2018. PA/lateral chest unchanged again demonstrating minimal right middle lobe subsegmental atelectasis/scarring and distal left clavicle deformity. Remaining heart, lungs, and bony thorax unremarkable. No new/acute findings.
[2019-10-30] MEDS: solu-MEDROL 125 MG IV SCH ×2 (09:24→16:30)
[2019-10-30] MEDS: BENADRYL 50 MG/ML IV PRN ×2 (09:56→16:30)
[2019-10-30] MEDS: Adalat CC 30 MG TABLET PO SCH (09:56)
[2019-10-30] MEDS: Lotensin 10 MG PO SCH (09:57)
[2019-10-30] MEDS: Paxil 12.5MG CR PO SCH (09:57)
[2019-10-30] MEDS ORDERED: NIFEDIPINE 90 MG PO SCH (10:00)
[2019-10-30] MEDS ORDERED: NON-FORMULARY ITEM (Benazepril Hcl [Lotensin] 20 MG) PO SCH (10:00)
[2019-10-30] MEDS ORDERED: PAROXETINE HCL PO SCH (10:00)
[2019-10-30] MEDS: NovoLOG Insulin SQ PRN ×2 (14:19→18:08)
[2019-10-30] MEDS: Sodium Chloride 0.9% 1000 ML 1,000 ML IV SCH (16:29)
[2019-10-31] MEDS: solu-MEDROL 125 MG IV SCH ×3 (00:04→16:03)
[2019-10-31] MEDS: Sodium Chloride 0.9% 1000 ML 1,000 ML IV SCH ×2 (03:12→13:39)
[2019-10-31] MEDS: Paxil 12.5MG CR PO SCH (08:13)
[2019-10-31] MEDS: Lotensin 10 MG PO SCH (08:13)
[2019-10-31] MEDS: Adalat CC 30 MG TABLET PO SCH (08:13)
[2019-10-31 09:09] LABS: ANION GAP 10.3 MEQ/L (5-15); BLOOD UREA NITROGEN 19 mg/dL (7-17); CHLORIDE 102 mmol/L (98-107); Calcium 8.4 mg/dL (8.4-10.2); Carbon Dioxide 29 mmol/L (22-30); Creatinine 1 0.68 mg/dL (0.52-1.04); Glucose 175 mg/dL (74-106); Potassium 4.6 mmol/L (3.5-5.1); SODIUM 137 mmol/L (137-145)
--- NOTE | 2019-10-31 12:49 | PCM.NOTE ---
Date and Time: 10/31/19 1244 Subjective Assessment: Patient has history of asthma and also smokes but is working on quitting she reports. She continues to have cough, wheezing, shortness of breath and does not wear oxygen at home. She reports her hives have completely gone away. Dr. Harden continued her on her WILLIAM inhibitor. - Review of Systems Constitutional: Fatigue Eyes: No Symptoms Ears, Nose, & Throat: No Symptoms Respiratory: Cough, Short Of Breath, Wheezing Cardiac: No Symptoms Abdominal/Gastrointestinal: No Symptoms Genitourinary Symptoms: No Symptoms Musculoskeletal: No Symptoms Objective Exam General Appearance: no apparent distress, other (talking in full sentences) Neurologic Exam: alert, cooperative, normal mood/affect Skin Exam: normal color, warm, dry, No rash Respiratory Exam: other (scattered expiratory wheezes throughout, equal breath sounds) Cardiovascular Exam: regular rate/rhythm, normal heart sounds, No friction rub, No gallop, No tachycardia Gastrointestinal/Abdomen Exam: soft, normal bowel sounds Extremity Exam: other (no c/c/e) OBJECTIVE DATA Vital Signs: Vital Signs - 24 hr Temp Pulse Resp BP Pulse Ox 10/31/19 12:00 98.2 F 84 21 150/70 93 L 10/31/19 08:27 69 18 95 10/31/19 08:00 98.1 F 93 H 18 132/64 99 10/31/19 03:57 98.2 F 77 17 124/62 94 L 10/30/19 20:20 85 18 93 L 10/30/19 20:00 98.2 F 79 20 130/70 94 L 10/30/19 16:40 76 18 92 L 10/30/19 16:00 97.6 F 93 H 19 150/92 92 L Oxygen-Last 24 hours O2 Percentage 2 Liters = 28% O2 Percentage 2 Liters = 28% O2 Percentage 3 Liters = 32% O2 Percentage 3 Liters = 32% Oxygen Flowrate (L/min)-RT 3 Pain Assessment - Last Documented Pain Intensity 0 Pain Scale Used 0-10 Pain Scale Intake and Output: Intake & Output 10/29/19 10/30/19 10/31/19 11/01/19 06:59 06:59 06:59 06:59 Intake Total 3159 380 Output Total 200 Balance 2959 380 Weight 103.9 kg Lab Results: Accuchecks Date 10/31/19 Time 07:30 Accucheck Value: 166 Accucheck Value: 190 Accucheck Value: 267 Lab Results-Last 24 Hours 10/30/19 10/31/19 Range/Units 13:47 08:15 Sodium 137 (137-145) mmol/L Potassium 4.6 D (3.5-5.1) mmol/L Chloride 102 (98-107) mmol/L Carbon Dioxide 29 (22-30) mmol/L Anion Gap 10.3 (5-15) MEQ/L BUN 19 H (7-17) mg/dL Creatinine 0.68 (0.52-1.04) mg/dL Estimated GFR > 60.0 ML/MIN Glucose 175 H (74-106) mg/dL Calcium 8.4 (8.4-10.2) mg/dL Troponin I < 0.012 (0.000-0.034) ng/mL Radiology Exams: Radiology Procedures Category Date Time Status CHEST 2 VIEWS (PA AND LAT) Stat Exams 10/30/19 02:24 Completed Multi-Disciplinary Progress Notes: Multi-Disciplinary Progress Notes 10/31/19 10:14 Respiratory Note by Ana Torres 1010 N/C 2LPM SPO2 94%. PLACED ON ROOM AIR RESTING 1015 SPO2 87%. PLACED BACK ON N/C 2LPM Initialized on 10/31/19 10:14 - END OF NOTE Assessment/Plan (1) Influenza A Current Visit: Yes Status: Acute Assessment & Plan: Continue with tamiflu, oxygen, breathing treatments. Code(s): J10.1 - FLU DUE TO OTH IDENT INFLUENZA VIRUS W OTH RESP MANIFEST (2) Asthma exacerbation Current Visit: No Status: Acute Assessment & Plan: Continue with solumedrol, oxygen, breathing treatments. Code(s): J45.901 - UNSPECIFIED ASTHMA WITH (ACUTE) EXACERBATION (3) Hypertension Current Visit: No Status: Acute Assessment & Plan: Continue home medication. Code(s): I10 - ESSENTIAL (PRIMARY) HYPERTENSION (4) Allergic reaction caused by a drug Current Visit: Yes Status: Acute Assessment & Plan: Resolving, patient had allergic reaction to Tamiflu. Code(s): T78.40XA - ALLERGY, UNSPECIFIED, INITIAL ENCOUNTER (5) DVT prophylaxis Current Visit: Yes Status: Acute Assessment & Plan: Will start lovenox. Code(s): Z29.9 - ENCOUNTER FOR PROPHYLACTIC MEASURES, UNSPECIFIED
[2019-10-31] MEDS: ENOXAPARIN SODIUM SQ SCH (16:04)
[2019-11-01] MEDS: solu-MEDROL 125 MG IV SCH ×2 (00:49→07:54)
[2019-11-01] MEDS: Lotensin 10 MG PO SCH (07:55)
[2019-11-01] MEDS: Adalat CC 30 MG TABLET PO SCH (07:55)
[2019-11-01] MEDS: Paxil 12.5MG CR PO SCH (07:55)
[2019-11-01] MEDS: ENOXAPARIN SODIUM SQ SCH (07:55)
[2019-11-01] MEDS: Sodium Chloride 0.9% 1000 ML 1,000 ML IV SCH (10:38)
[2019-11-01] MEDS ORDERED: solu-MEDROL 125 MG IV SCH ×2 (12:00)
[2019-11-01] MEDS: solu-MEDROL 40 MG IV SCH ×2 (14:44→21:34)
--- NOTE | 2019-11-01 14:56 | PCM.NOTE ---
Date and Time: 11/01/19 1454 Subjective Assessment: Patient reports she is starting to feel better but still has wheezing and requiring oxygen which she does not wear at home. She denies any hives. - Review of Systems Constitutional: Weakness Respiratory: Short Of Breath, Wheezing Cardiac: No Symptoms Abdominal/Gastrointestinal: No Symptoms Genitourinary Symptoms: No Symptoms Musculoskeletal: No Symptoms Skin: No Symptoms Objective Exam General Appearance: no apparent distress Neurologic Exam: alert, cooperative Skin Exam: normal color, warm, dry Respiratory Exam: wheezing, No respiratory distress, No crackles/rales, No rhonchi Cardiovascular Exam: regular rate/rhythm, normal heart sounds, No murmur, No friction rub, No gallop Gastrointestinal/Abdomen Exam: soft, normal bowel sounds, No tenderness, No distention, No mass Extremity Exam: other (no c/c/e) OBJECTIVE DATA Vital Signs: Vital Signs - 24 hr Temp Pulse Resp BP Pulse Ox 11/01/19 12:00 98.3 F 76 18 152/62 93 L 11/01/19 11:44 96 11/01/19 07:54 98.4 F 68 18 140/76 94 L 11/01/19 04:00 97.6 F 85 25 H 175/70 96 11/01/19 00:00 98.1 F 74 20 155/65 93 L 10/31/19 20:07 80 20 93 L 10/31/19 20:00 98.3 F 75 18 135/70 93 L 10/31/19 16:00 98.5 F 66 22 126/62 90 L Oxygen-Last 24 hours O2 Percentage 3 Liters = 32% O2 Percentage 2 Liters = 28% O2 Percentage 2 Liters = 28% Pain Assessment - Last Documented Pain Intensity 0 Pain Scale Used 0-10 Pain Scale Intake and Output: Intake & Output 10/30/19 10/31/19 11/01/19 11/02/19 06:59 06:59 06:59 06:59 Intake Total 3159 2323 480 Output Total 200 Balance 2959 2323 480 Weight 103.9 kg Lab Results: Accuchecks Date 11/01/19 Date 11/01/19 Date 10/31/19 Date 10/31/19 Time 11:30 Time 07:30 Time 21:30 Time 16:30 Accucheck Value: 194 Accucheck Value: 182 Accucheck Value: 206 Accucheck Value: 211 Assessment/Plan (1) Influenza A Current Visit: Yes Status: Acute Assessment & Plan: Continue supportive care with oxygen and breathing treatments; slowly improving. Code(s): J10.1 - FLU DUE TO OTH IDENT INFLUENZA VIRUS W OTH RESP MANIFEST (2) Asthma exacerbation Current Visit: No Status: Acute Assessment & Plan: Continue IV steroids but will start to wean dose. Code(s): J45.901 - UNSPECIFIED ASTHMA WITH (ACUTE) EXACERBATION (3) Hypertension Current Visit: No Status: Acute Code(s): I10 - ESSENTIAL (PRIMARY) HYPERTENSION (4) Allergic reaction caused by a drug Current Visit: Yes Status: Acute Code(s): T78.40XA - ALLERGY, UNSPECIFIED, INITIAL ENCOUNTER (5) DVT prophylaxis Current Visit: Yes Status: Acute Code(s): Z29.9 - ENCOUNTER FOR PROPHYLACTIC MEASURES, UNSPECIFIED
[2019-11-01] MEDS: NovoLOG Insulin SQ PRN (22:33)
[2019-11-02] MEDS: solu-MEDROL 40 MG IV SCH (06:53)
[2019-11-02] MEDS ORDERED: DELTASONE 10 MG PO SCH (08:00)
[2019-11-02] MEDS: ENOXAPARIN SODIUM SQ SCH (09:37)
[2019-11-02] MEDS: Lotensin 10 MG PO SCH (09:39)
[2019-11-02] MEDS: Adalat CC 30 MG TABLET PO SCH (09:39)
[2019-11-02] MEDS: Paxil 12.5MG CR PO SCH (09:40)
--- NOTE | 2019-11-02 09:57 | XRAY ---
Indication: Fever and cough. Flu symptoms. Comparison: October 30, 2019. PA/lateral chest demonstrates grossly stable right infrahilar infiltrate versus atelectasis. Remaining heart and lungs unremarkable. No new cardiopulmonary abnormalities.
[2019-11-02 12:54] VITALS: BP 150/62
[2019-11-02 16:20] VITALS: PULSE 87
[2019-11-02 17:31] VITALS: O2SAT 92
--- NOTE | 2019-11-03 11:19 | DS ---
DISCHARGE DIAGNOSES: 1) INFLUENZA. 2) HYPOXIA. HOSPITAL COURSE: The patient is a 54 year-old white female who contracted influenza and became increasingly short of breath along with fever, chills and sweats. She was seen in the emergency room and found to be hypoxic with an oxygen saturation 85% range. The patient was admitted to the hospital. She did receive a dose of Tamiflu as an outpatient however had a reaction of hives although did not have any more significant findings of anaphylaxis. She only received the one dose. After this she was placed on IV steroids and Benadryl which did help the rash. She continued to be hospitalized for ensuing weekend. By the afternoon of 11/02/2019, however she was felt to be ready for discharge home. She is now no longer hypoxic and was felt to be in stable enough condition to be discharged home. She was instructed to follow up in the office in one week or to call us if there are any further problems in the interim.
== END 2019-11-02 17:43 | disposition home or self-care (01) ==
LOC: ED 01:12 → MED SURG 03:53
PROVIDERS: ADMIT Family Medicine; ATTEND Family Medicine
DX: J09.X2 Influenza due to identified novel influenza A virus with other respiratory manifestations (principal); E11.9 Type 2 diabetes mellitus without complications; I10 Essential (primary) hypertension; J45.901 Unspecified asthma with (acute) exacerbation; R21 Rash and other nonspecific skin eruption; T37.5X5A Adverse effect of antiviral drugs, initial encounter; R09.02 Hypoxemia; Z79.899 Other long term (current) drug therapy
CPT/HCPCS: 36000; 36415; 71046; 80048; 80053; 82962; 83036; 83605; 83880; 84484; 85025; 93005; 93041; 93268; 94760; 94762; 96372; 96374; 96375; 99285; G0378; J0171; J1200; J1650; J2270; J2405; J2920; J2930; A9270-GY

== ENCOUNTER 2021-03-02 10:05 | Emergency (ER) | payer OTHER ==
[2012-08-25 11:58] VITALS: BP 136/92
[2021-03-02 10:52] LABS: Absolute Neutrophil Ct (ANC) 6.91 (1.4-6.9); BASOPHIL % 0.2 % (0.0-0.4); Basophil (Absolute #) 0.02 (0-0.4); Eosinophil % 3.5 % (0.00-5.0); Eosinophil (Absolute #) 0.39 (0-0.5); Hematocrit 39.3 % (35-47); Hemoglobin 12.1 gm/dl (12.0-16.0); Lymphocyte (Absolute #) 3.28 (1.0-4.6); Lymphocytes % 29.2 % (24.0-44.0); Mean Cell Volume 88.1 fl (78-100); Mean Corpuscular Hemoglobin 27.1 pg (26-32); Mean Corpuscular Hgb Concent. 30.8 g/dl (32-36); Mean Platelet Volume 9.1 fl (7.5-11.0); Monocyte (Absolute #) 0.65 (0.0-1.3); Monocytes % 5.8 % (0.0-12.0); Neutrophil % 61.3 % (36.0-66.0); Platelet Count 323 K/mm3 (150-450); Red Blood Count 4.46 M/mm3 (4.1-5.4); Red Cell Distribution Width 14.9 % (11.5-14.0); White Blood Count 11.3 K/mm3 (4.0-10.5)
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
[2021-03-02 10:55] LABS: INR 1.05 (0.8-3.0); PROTIME 11.9 SECONDS (9.95-12.35)
[2021-03-02 11:00] LABS: ALBUMIN 3.7 g/dL (3.5-5.0); ANION GAP 11.2 MEQ/L (5-15); BILIRUBIN,TOTAL 0.4 mg/dL (0.2-1.3); Creatinine 1 1.05 mg/dL (0.52-1.04); Potassium 3.3 mmol/L (3.5-5.1); Total Protein 6.9 g/dL (6.3-8.2)
[2021-03-02 11:21] LABS: ABO TYPING O; Antibody Screen NEGATIVE (NEGATIVE); RH TYPING NEGATIVE
[2021-03-02 11:23] LABS: CROSS MATCH (PRBC) COMPATIBLE (COMPATIBLE)
[2021-03-02 11:54] VITALS: BP 118/88; PULSE 117; O2SAT 100
[2021-03-02 12:27] LABS: A-aADO2 539; ABG HEMOGLOBIN 12.7; ABG POTASSIUM 3.6 (3.5-5.1); ARTERIAL BLD GAS O2 SATURATION 99.2 % (95-100); ARTERIAL BLOOD GAS BASE EXCESS 0.8 (-2.0-2.0); ARTERIAL BLOOD GAS FIO2 100 %; ARTERIAL BLOOD GAS PCO2 39 mmHg (35-45); ARTERIAL BLOOD GAS PO2 125 mmHg (75-100); ARTERIAL BLOOD GAS pH 7.42 (7.35-7.45); HCO3- 25.3 (22-28); HGB O2 SAT 90.1 g/dF (94-100); Methhemoglobin 0.8 % (1.4-1.5)
[2021-03-02 12:28] LABS: ABG SITE LEFT RADIAL; ALLEN TEST OK? YES; CARBOXYHEMOGLOBIN 8.3 % THgb (0.0-6.9)
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
== END 2021-03-02 10:55 | disposition short-term general hospital (02) ==
LOC: MERGE 10:05 → ED 10:05 → EDBD 10:05 → ED 10:55
DX: S04.50XA Injury of facial nerve, unspecified side, initial encounter (principal); R58 Hemorrhage, not elsewhere classified; V89.2XXA Person injured in unspecified motor-vehicle accident, traffic, initial encounter; Y93.9 Activity, unspecified
CPT/HCPCS: 36415; 36430; 36600; 71045; 80053; 82375; 82803; 85025; 85610; 86850; 86900; 86901; 86922; 94799; 99284; 99291; L0120

== ENCOUNTER 2024-06-01 17:52 | Emergency (ER) | payer OTHER ==
[2024-06-01 18:22] VITALS: RESP 18; TEMP 97.6
--- NOTE | 2024-06-01 19:23 | ERPHSYRPT ---
- History of Present Illness Time Seen by Provider: 06/01/24 19:23 Source: patient, family Exam Limitations: no limitations Patient Subjective Stated Complaint: PT states "I have had pain in my upper left back since 5 pm yesterday. I went to [facility] today and they did an EKG and sent it to Dr. Harden office and I guess he didn't like what he saw so he told me to come here." Triage Nursing Assessment: Pt presented alert and oriented X 3, skin pwd. Pt ambulates with an upright steady gait, able to speak in clear full sentences. PT grunting and guarding her upper back. Physician History: This is a 59-year-old white female patient was brought in by private vehicle by her significant other and whose primary care provider is Dr. Harden and presents with left posterior lateral sharp back pain. It is deep. It is not changed with palpation or with turning or twisting. Patient has no documented history of coronary artery disease. She does have a history of hypertension and is on 3 different medications. She has not taken her evening dose of her hydralazine. Patient has a history of migraine headaches, epilepsy, asthma and depression. Patient did not suffer any acute fall or trauma. Patient went to the [facility] earlier and they did not like what they saw on the EKG so they sent her to the emergency department. Patient is a daily smoker of tobacco cigarettes. Timing/Duration: yesterday Method of Injury: other (No fall or injury) Quality: sharp Back Pain Location: paraspinous muscles (Left posterior lateral) Severity of Pain-Max: moderate Severity of Pain-Current: moderate Modifying Factors: Improves With: nothing Associated Symptoms: denies symptoms Previous symptoms: no prior history, no recent treatment Allergies/Adverse Reactions: oseltamivir [From Tamiflu] Allergy (Intermediate, Verified 03/07/21 08:09) Hives Sulfa (Sulfonamide Antibiotics) [Sulfa(Sulfonamide Antibiotics)] Allergy (Verified 03/07/21 08:09) sumatriptan [From Imitrex] Allergy (Verified 03/07/21 08:09) Home Medications: Amlodipine Besylate [Norvasc] 10 mg PO DAILY 06/01/24 [History] Famotidine 20 mg [Pepcid 20 MG] 20 mg PO DAILY 06/01/24 [History] HydrALAzine HCL 25 MG TAB [Apresoline 25 MG TABLET] 25 mg PO DAILY PRN 06/01/24 [History] OXcarbazepine [Oxtellar Xr] 150 mg PO DAILY 06/01/24 [History] PARoxetine HCL [Paxil] 30 mg PO DAILY 06/01/24 [History] Rizatriptan Benzoate [Rizatriptan] 10 mg PO DAILY PRN 06/01/24 [History] Topiramate [Topiramate ER] 50 mg PO DAILY 06/01/24 [History] Triamterene/Hydrochlorothiazid [Triamterene-Hctz 37.5-25 mg Tb] 1 each PO DAILY 06/01/24 [History] lisinopriL [Lisinopril] 40 mg PO DAILY 06/01/24 [History] Hx Tetanus, Diphtheria Vaccination/Date Given: Yes Hx Influenza Vaccination/Date Given: No Hx Pneumococcal Vaccination/Date Given: No Immunizations Up to Date: No Travel Risk - International Travel Have you traveled outside of the country in past 3 weeks: No - Emerging Infectious Disease Are you exhibiting symptoms associated with any current EIDs: No - Review of Systems Constitutional: No Symptoms Eyes: No Symptoms Ears, Nose, & Throat: No Symptoms Respiratory: No Symptoms Cardiac: No Symptoms Abdominal/Gastrointestinal: No Symptoms Genitourinary Symptoms: No Symptoms Musculoskeletal: Back Pain (Left posterior lateral) Skin: No Symptoms Neurological: No Symptoms Psychological: No Symptoms Endocrine: No Symptoms Hematologic/Lymphatic: No Symptoms Immunological/Allergic: No Symptoms All Other Systems: Reviewed and Negative - Past Medical History Pertinent Past Medical History: Yes Neurological History: Migraines, Epilepsy ENT History: No Pertinent History Cardiac History: Hypertension Respiratory History: Asthma Endocrine Medical History: Diabetes Type II Musculoskeletal History: No Pertinent History, Osteoarthritis GI Medical History: No Pertinent History History: No Pertinent History Psycho-Social History: No Pertinent History, Depression Female Reproductive Disorders: No Pertinent History Other Medical History: BORDERLINE DIABETIC - Past Surgical History Past Surgical History: Yes Neuro Surgical History: No Pertinent History Cardiac: No Pertinent History Respiratory: No Pertinent History Gastrointestinal: Cholecystectomy Genitourinary: No Pertinent History Musculoskeletal: Orthopedic Surgery Female Surgical History: Section, Hysterectomy Other Surgical History: bilat KNEE REPLACEMENT. eye surgery. facial surgery Significant Family History: other - Social History Smoking Status: Current every day smoker How long have you smoked: 20 yrs Exposure to second hand smoke: Yes Alcohol Use: Socially Drug Use: none Patient Lives Alone: No - Social Determinants of Health Will the patient participate in the screening: Declined to provide - Nursing Vital Signs Nursing Vital Signs: Initial Vital Signs Temperature 97.6 F 06/01/24 18:16 Pulse Rate 89 06/01/24 18:16 Respiratory Rate 18 06/01/24 18:16 Blood Pressure 207/106 06/01/24 18:16 O2 Sat by Pulse Oximetry 99 06/01/24 18:16 Pain Scale Pain Intensity [Left Upper 5 Back] Pain Intensity 9 - Physical Exam General Appearance: mild distress, alert, anxiety, obese Eye Exam: PERRL/EOMI, eyes nml inspection Ears, Nose, Throat Exam: normal ENT inspection, moist mucous membranes Neck Exam: normal inspection, non-tender, supple, full range of motion Respiratory Exam: normal breath sounds, lungs clear, airway intact, No chest tenderness, No respiratory distress Cardiovascular Exam: regular rate/rhythm, normal heart sounds, normal peripheral pulses Gastrointestinal Exam: soft, normal bowel sounds, No tenderness Pelvic Exam: not done Rectal Exam: not done Back Exam: normal range of motion, other (Left posterior lateral upper back pain. It is deep and sharp) Extremity Exam: normal inspection, normal range of motion, pelvis stable Neurologic Exam: alert, oriented x 3, cooperative, in house cra II-XII nml as tested, nml cerebellar function, nml station & gait, sensation nml Skin Exam: normal color, warm, dry Lymphatic Exam: No adenopathy SpO2 Interpretation: normal SpO2: 96 O2 Delivery: Room Air - Course Nursing assessment & vital signs reviewed: Yes EKG Interpreted by Me: RATE (57), Sinus Rhythm, NORMAL AXIS, NORMAL INTERVALS, Right Bundle Branch Block, Other (No acute ischemic changes on today's twelve- lead EKG. QTc is 464 there is no significant change in the twelve-lead EKG that was done earlier in the day on 06/01/2024 at 1313. I interpreted that twelve- lead EKG as well it states normal sinus rhythm heart rate 61 with right bundle branch block and le) Ordered Tests: Active Orders 24 hr Category Date Time Status [employer] STAT Care 06/01/24 19:24 Active EKG-ER Only STAT Care 06/01/24 19:24 Active IV Insertion STAT Care 06/01/24 19:24 Active Pulse Oximetry (ED) STAT Care 06/01/24 19:24 Active CHEST WITH CONTRAST [CT] Stat Exams 06/01/24 21:44 Completed CBC W DIFF Stat Lab 06/01/24 19:35 Completed CK-Creatinine Phosphokinase Stat Lab 06/01/24 19:35 Completed CMP Stat Lab 06/01/24 19:35 Completed D-DIMER QUANTITATIVE Stat Lab 06/01/24 19:35 Completed PROTIME WITH INR Stat Lab 06/01/24 19:35 Completed TROPONIN Q4H Lab 06/01/24 19:35 Completed TROPONIN Q4H Lab 06/01/24 23:30 Completed TROPONIN Q4H Lab 06/02/24 03:30 Ordered Medication Summary Discontinued Medications Generic Name Dose Route Start Last Admin Trade Name Freq PRN Reason Stop Dose Admin Aspirin 324 mg 06/01/24 19:24 06/01/24 19:47 Aspirin 81 Mg Tab.Chew PO 06/01/24 19:25 324 mg STAT ONE Administration Aspirin Confirm 06/01/24 19:46 Aspirin 81 Mg Tab.Chew Administered 06/01/24 19:47 Dose 324 mg .ROUTE .STK-MED ONE Hydralazine HCl 10 mg 06/01/24 20:22 06/01/24 21:07 Hydralazine Hcl 20 Mg/Ml Vial IV 06/01/24 20:23 10 mg STAT ONE Administration Hydralazine HCl Confirm 06/01/24 21:06 Hydralazine Hcl 20 Mg/Ml Vial Administered 06/01/24 21:07 Dose 20 mg .ROUTE .STK-MED ONE Morphine Sulfate 6 mg 06/01/24 20:18 06/01/24 20:37 Morphine Sulfate 10 Mg/Ml Injection IV 06/01/24 20:19 6 mg STAT ONE Administration Morphine Sulfate Confirm 06/01/24 20:32 Morphine Sulfate 10 Mg/Ml Injection Administered 06/01/24 20:33 Dose 10 mg .ROUTE .STK-MED ONE Ondansetron HCl 4 mg 06/01/24 20:18 06/01/24 20:37 Ondansetron Hcl 4 Mg/2 Ml Vial IV 06/01/24 20:19 4 mg STAT ONE Administration Ondansetron HCl Confirm 06/01/24 20:32 Ondansetron Hcl 4 Mg/2 Ml Vial Administered 06/01/24 20:33 Dose 4 mg .ROUTE .STK-MED ONE Lab/Rad Data: Laboratory Result Diagrams 06/01/24 19:35 06/01/24 19:35 Laboratory Results 06/01/24 06/01/24 06/01/24 Range/Units 23:30 19:35 19:35 WBC (3.98-10.04) x10^3/uL RBC (3.93-5.22) x10^6/uL Hgb (11.2-15.7) g/dL Hct (34.1-44.9) % MCV (79.4-94.8) fL MCH (25.6-32.2) pg MCHC (32.2-35.5) g/dL RDW (11.7-14.4) % Plt Count (182-369) x10^3/uL MPV (9.4-12.3) fL Gran % (34.0-71.1) % Immature Gran % (Auto) (0.001-0.429) % Nucleat RBC Rel Count (0.00-0.2) % Eos # (Auto) (0.04-0.36) x10^3/uL Immature Gran # (Auto) (0.001-0.031) x10^3u/L Absolute Lymphs (auto) (1.18-3.74) x10^3/uL Absolute Monos (auto) (0.24-0.86) x10^3/uL Absolute Nucleated RBC (0.00-0.012) x10^3u/L Lymphocytes % (19.3-51.7) % Monocytes % (4.7-12.5) % Eosinophils % (0.7-5.8) % Basophils % (0.1-1.2) % Absolute Granulocytes (1.56-6.13) x10^3/uL Basophils # (0.01-0.08) x10^3/uL PT (9.4-12.5) SECONDS INR (0.8-3.0) D-Dimer 0.77 H* (0.0-0.50) mg/L Sodium (135-145) mmol/L Potassium (3.5-5.1) mmol/L Chloride (98-107) mmol/L Carbon Dioxide (22-30) mmol/L Anion Gap (5-15) MEQ/L BUN (7-17) mg/dL Creatinine (0.52-1.04) mg/dL Estimated GFR ML/MIN Glucose (74-106) mg/dL Calcium (8.4-10.2) mg/dL Total Bilirubin (0.2-1.3) mg/dL AST (14-36) U/L ALT (0-35) U/L Alkaline Phosphatase (38-126) U/L Creatine Kinase (30-135) U/L Troponin I < 0.012 < 0.012 (0.000-0.033) ng/mL Serum Total Protein (6.3-8.2) g/dL Albumin (3.5-5.0) g/dL 06/01/24 06/01/24 06/01/24 Range/Units 19:35 19:35 19:35 WBC 8.5 (3.98-10.04) x10^3/uL RBC 4.28 (3.93-5.22) x10^6/uL Hgb 11.1 L (11.2-15.7) g/dL Hct 36.4 (34.1-44.9) % MCV 85.0 (79.4-94.8) fL MCH 25.9 (25.6-32.2) pg MCHC 30.5 L (32.2-35.5) g/dL RDW 14.2 (11.7-14.4) % Plt Count 339 (182-369) x10^3/uL MPV 8.9 L (9.4-12.3) fL Gran % 72.5 H (34.0-71.1) % Immature Gran % (Auto) 0.4 (0.001-0.429) % Nucleat RBC Rel Count 0.0 (0.00-0.2) % Eos # (Auto) 0.24 (0.04-0.36) x10^3/uL Immature Gran # (Auto) 0.03 (0.001-0.031) x10^3u/L Absolute Lymphs (auto) 1.55 (1.18-3.74) x10^3/uL Absolute Monos (auto) 0.50 (0.24-0.86) x10^3/uL Absolute Nucleated RBC 0.00 (0.00-0.012) x10^3u/L Lymphocytes % 18.2 L (19.3-51.7) % Monocytes % 5.9 (4.7-12.5) % Eosinophils % 2.8 (0.7-5.8) % Basophils % 0.2 (0.1-1.2) % Absolute Granulocytes 6.16 H (1.56-6.13) x10^3/uL Basophils # 0.02 (0.01-0.08) x10^3/uL PT 10.0 (9.4-12.5) SECONDS INR 0.91 (0.8-3.0) D-Dimer (0.0-0.50) mg/L Sodium 135 (135-145) mmol/L Potassium 4.4 (3.5-5.1) mmol/L Chloride 101 (98-107) mmol/L Carbon Dioxide 26 (22-30) mmol/L Anion Gap 11.9 (5-15) MEQ/L BUN 12 (7-17) mg/dL Creatinine 0.89 (0.52-1.04) mg/dL Estimated GFR 75.1 ML/MIN Glucose 125 H (74-106) mg/dL Calcium 9.2 (8.4-10.2) mg/dL Total Bilirubin 0.50 (0.2-1.3) mg/dL AST 23 (14-36) U/L ALT 13 (0-35) U/L Alkaline Phosphatase 150 H (38-126) U/L Creatine Kinase 76 (30-135) U/L Troponin I (0.000-0.033) ng/mL Serum Total Protein 7.5 (6.3-8.2) g/dL Albumin 4.1 (3.5-5.0) g/dL - Progress Progress: improved, re-examined Progress Note: 06/01/24 20:28 My medical decision making and the assignment of moderate complexity to this patient's medical issue today is based on review of the patient's past medical history, review of the patient's medication list, reviewed patient drug allergy list, history present illness and physical findings on examination. The workup in this patient includes placement of intravenous line, treatment 24 mg of baby aspirin, morphine intravenously, Zofran intravenously, hydralazine intravenously, CBC, CMP, BNP, troponin level, twelve-lead EKG and D-dimer level. Depending on the D-dimer level we may perform a CT scan with or possibly without IV contrast. Differential diagnosis includes muscle skeletal pain, pulmonary embolus, myocardial infarction, electrolyte abnormality, arrhythmia. 06/02/24 00:22 I interpreted the patient's laboratory data results. The patient had an elevated D-dimer level and I ordered a CT scan of the chest with contrast to evaluate for pulmonary embolism. The remainder of the laboratory data results did not show any acute or emergent medical issue. The CT scan of the chest with contrast was interpreted by the radiologist and I reviewed the impression. The impression states no evidence for pulmonary embolus. Bilateral basal atelectatic plates. Right thyroid hyperdense nodules. Ultrasound recommended. These findings were discussed with the patient and her significant other. Counseled pt/family regarding: lab results, diagnosis, need for follow-up, rad results Medical Desision Making - Independent Historian Additional History obtained from: Spouse - Diagnostic Testing Diagnostic test were ordered, analyzed, and reviewed by me: Yes Radiological Interpretation: Reviewed by me, Teleradiologist Report - Risk of complications The pt has a mod risk of morbidity or mortality based on: Need for prescription drug management - Departure Departure Disposition: Home Clinical Impression: Back pain, Hypertension Condition: Stable Critical Care Time: No Referrals: ALEC HARDEN [Primary Care Provider] - Follow up/PCP as directed Additional Instructions: Continue your blood pressure medication as prescribed. Follow-up with your primary care provider today, 06/02/2024, to make arrangements for a follow-up appointment for further evaluation management. Prescriptions: Prednisone 10 mg [Deltasone 10 mg] 10 mg PO TID #12 tablet Orphenadrine Citrate 100 mg [Norflex 100 MG Tablet] 100 mg PO BID #10 tab
[2024-06-01 19:42] LABS: Absolute Neutrophil Ct (ANC) 6.16 x10^3/uL (1.56-6.13); BASOPHIL % 0.2 % (0.1-1.2); Basophil (Absolute #) 0.02 x10^3/uL (0.01-0.08); Eosinophil % 2.8 % (0.7-5.8); Eosinophil (Absolute #) 0.24 x10^3/uL (0.04-0.36); Hematocrit 36.4 % (34.1-44.9); Hemoglobin 11.1 g/dL (11.2-15.7); IMMATURE GRAN # 0.03 x10^3u/L (0.001-0.031); IMMATURE GRAN % 0.4 % (0.001-0.429); Lymphocyte (Absolute #) 1.55 x10^3/uL (1.18-3.74); Lymphocytes % 18.2 % (19.3-51.7); Mean Corpuscular Hemoglobin 25.9 pg (25.6-32.2); Mean Corpuscular Hgb Concent. 30.5 g/dL (32.2-35.5); Mean Platelet Volume 8.9 fL (9.4-12.3); Monocytes % 5.9 % (4.7-12.5); Neutrophil % 72.5 % (34.0-71.1); Platelet Count 339 x10^3/uL (182-369); Red Blood Count 4.28 x10^6/uL (3.93-5.22); Red Cell Distribution Width 14.2 % (11.7-14.4); White Blood Count 8.5 x10^3/uL (3.98-10.04)
[2024-06-01] MEDS ORDERED: BABY ASPIRIN 81 MG CHEW ONE (19:46)
[2024-06-01] MEDS: BABY ASPIRIN 81 MG CHEW PO ONE (19:47)
[2024-06-01 19:55] LABS: INR 0.91 (0.8-3.0)
[2024-06-01 20:02] LABS: ALBUMIN 4.1 g/dL (3.5-5.0); ANION GAP 11.9 MEQ/L (5-15); BILIRUBIN,TOTAL 0.5 mg/dL (0.2-1.3); Calcium 9.2 mg/dL (8.4-10.2); Creatinine 1 0.89 mg/dL (0.52-1.04); EST GLOMERULAR FILTRATION RATE 75.1 ML/MIN; Potassium 4.4 mmol/L (3.5-5.1); Total Protein 7.5 g/dL (6.3-8.2)
[2024-06-01] MEDS ORDERED: MORPHINE SULFATE 10 MG/ML ONE (20:32)
[2024-06-01] MEDS ORDERED: Zofran 4 MG/2 ML VIAL ONE (20:32)
[2024-06-01] MEDS: MORPHINE SULFATE 10 MG/ML IV ONE (20:37)
[2024-06-01] MEDS: Zofran 4 MG/2 ML VIAL IV ONE (20:37)
[2024-06-01] MEDS ORDERED: APRESOLINE 20 MG/ML INJ ONE (21:06)
[2024-06-01] MEDS: APRESOLINE 20 MG/ML INJ IV ONE (21:07)
[2024-06-01 23:05] VITALS: PULSE 82
[2024-06-02 00:11] VITALS: BP 156/87; O2SAT 96
--- NOTE | 2024-06-02 00:14 | XRAY ---
CLINICAL HISTORY: Painful respirations; D-dimer up COMPARISON: none. TECHNIQUE: Contiguous axial CT angiographic images of the chest were acquired with the administration of intravenous contrast with PE protocol. One of these 3D techniques was utilized: Maximum Intensity Pixel (MIP), 3D Reconstructed Images, Volume Rendered Images, Surface Shaded Rendering. One of the following dose reduction techniques were utilized for this exam: Automated exposure control, adjustment of the mA and/or kV according to patient size, use of iterative reconstruction?. FINDINGS: No evidence of any filling defect in the main pulmonary trunk, bilateral main pulmonary arteries, segmental arteries and subsegmental arteries to suggest acute or chronic pulmonary embolism. Patent thoracic aorta showing mild intimal irregularities and calcified atheromatous plaques. No intraluminal hypodense thrombi, dissecting intimal flaps or significant aneurysmal dilatation. No obvious cardiac abnormalities detected. Bilateral lower lobes, lingula and right middle lobes atelectatic plates. No obvious pulmonary masses or consolidations. No pleural or pericardial sac collections. No pathologically enlarged hilar or mediastinal lymph nodes are noted. Right thyroid lobe hypodense nodules. Advise sonography correlation. Small hiatus hernia. Scanned osseous structures show spondylosis. No osseous destruction. IMPRESSION: 1. No evidence of pulmonary arterial thromboembolism. 2. Bilateral basal atelectatic plates. 3. Right thyroid lobe hypodense nodules. Advise sonography correlation. Electronically Signed by: Sally Nj MD. (06/02/2024 00:10:09 EDT)
[2024-06-02] MEDS ORDERED: PERCOCET TABLET 5/325MG ONE (00:32)
[2024-06-02] MEDS: PERCOCET TABLET 5/325MG PO STA (00:35)
== END 2024-06-02 00:42 | disposition home or self-care (01) ==
LOC: ED 17:52
DX: M54.6 Pain in thoracic spine (principal); I10 Essential (primary) hypertension; E11.9 Type 2 diabetes mellitus without complications; Z79.52 Long term (current) use of systemic steroids; Z79.899 Other long term (current) drug therapy; Z72.0 Tobacco use
CPT/HCPCS: 36000; 36415; 71260; 80053; 82550; 84484; 85025; 85379; 85610; 93005; 93041; 94760; 96374; 96375; 99284; J0360; J2270; J2405; A9270-GY

== ENCOUNTER 2024-06-09 17:32 | Emergency (ER) | payer OTHER ==
[2024-06-09 17:46] VITALS: TEMP 97.3
[2024-06-09] MEDS ORDERED: Sodium Chloride 0.9% 1000 ML 1,000 ML ONE (17:51)
[2024-06-09] MEDS: Sodium Chloride 0.9% 1000 ML 1,000 ML IV STA (17:53)
--- NOTE | 2024-06-09 17:55 | ERPHSYRPT ---
- History of Present Illness Time Seen by Provider: 06/09/24 17:52 Source: patient Patient Subjective Stated Complaint: headache, fever body aches Triage Nursing Assessment: patient states she started feeling unwell approx 1 week ago c/o headache, fever, body aches, and chils Physician History: 59-year-old female presents to our ED for evaluation of feeling unwell. Patient has been experiencing symptoms for approximately 1 week. Symptoms include generalized bodyaches headache, abdominal cristela, generalized weakness decreased oral intake. No neck pain no nuchal rigidity. No photophobia. No meningeal signs. No rash. No urinary symptomology. No hematuria no dysuria no increased urinary frequency. No cough no shortness of breath no nausea no vomiting no diarrhea no rash. No obvious sick contacts. Symptoms are mild to moderate in intensity. No specific worsening or improving factors. at bedside. They voiced no other complaints or concerns at this time. Portions of this note were created with voice recognition technology. There may be grammatical, spelling, punctuation or sound alike errors Timing/Duration: day(s) (1 week) Severity: moderate Modifying Factors: Improves With: nothing Associated Symptoms: headaches, malaise Allergies/Adverse Reactions: oseltamivir [From Tamiflu] Allergy (Intermediate, Verified 03/07/21 08:09) Hives Sulfa (Sulfonamide Antibiotics) [Sulfa(Sulfonamide Antibiotics)] Allergy (Verified 03/07/21 08:09) sumatriptan [From Imitrex] Allergy (Verified 03/07/21 08:09) Home Medications: Amlodipine Besylate [Norvasc] 10 mg PO DAILY 06/01/24 [History] Famotidine 20 mg [Pepcid 20 MG] 20 mg PO DAILY 06/01/24 [History] HydrALAzine HCL 25 MG TAB [Apresoline 25 MG TABLET] 25 mg PO DAILY PRN 06/01/24 [History] OXcarbazepine [Oxtellar Xr] 150 mg PO DAILY 06/01/24 [History] PARoxetine HCL [Paxil] 30 mg PO DAILY 06/01/24 [History] Rizatriptan Benzoate [Rizatriptan] 10 mg PO DAILY PRN 06/01/24 [History] Topiramate [Topiramate ER] 50 mg PO DAILY 06/01/24 [History] Triamterene/Hydrochlorothiazid [Triamterene-Hctz 37.5-25 mg Tb] 1 each PO DAILY 06/01/24 [History] lisinopriL [Lisinopril] 40 mg PO DAILY 06/01/24 [History] Hx Tetanus, Diphtheria Vaccination/Date Given: Yes Hx Influenza Vaccination/Date Given: No Hx Pneumococcal Vaccination/Date Given: No Travel Risk - International Travel Have you traveled outside of the country in past 3 weeks: No - Emerging Infectious Disease Are you exhibiting symptoms associated with any current EIDs: No Symptoms: Fever, Headaches/Body Aches/, Vomitting - Review of Systems Constitutional: No Symptoms, No Fever, No Chills Eyes: No Symptoms Ears, Nose, & Throat: No Symptoms Respiratory: No Symptoms, No Cough, No Dyspnea Cardiac: No Symptoms, No Chest Pain, No Edema, No Syncope Abdominal/Gastrointestinal: No Symptoms, No Abdominal Pain, No Nausea, No Vomiting, No Diarrhea Genitourinary Symptoms: No Symptoms, No Dysuria Musculoskeletal: No Symptoms, No Back Pain, No Neck Pain Skin: No Symptoms, No Rash Neurological: No Symptoms, No Dizziness, No Focal Weakness, No Sensory Changes Psychological: No Symptoms Endocrine: No Symptoms Hematologic/Lymphatic: No Symptoms Immunological/Allergic: No Symptoms All Other Systems: Reviewed and Negative - Past Medical History Pertinent Past Medical History: Yes Neurological History: Migraines, Epilepsy ENT History: No Pertinent History Cardiac History: Hypertension Respiratory History: Asthma Endocrine Medical History: Diabetes Type II Musculoskeletal History: No Pertinent History, Osteoarthritis GI Medical History: No Pertinent History History: No Pertinent History Psycho-Social History: No Pertinent History, Depression Female Reproductive Disorders: No Pertinent History Other Medical History: BORDERLINE DIABETIC - Past Surgical History Past Surgical History: Yes Neuro Surgical History: No Pertinent History Cardiac: No Pertinent History Respiratory: No Pertinent History Gastrointestinal: Cholecystectomy Genitourinary: No Pertinent History Musculoskeletal: Orthopedic Surgery Female Surgical History: Section, Hysterectomy Other Surgical History: bilat KNEE REPLACEMENT. eye surgery. facial surgery Significant Family History: other - Social History Smoking Status: Former smoker How long have you smoked: 20 yrs Exposure to second hand smoke: No Alcohol Use: Socially Drug Use: none Patient Lives Alone: No - Social Determinants of Health Will the patient participate in the screening: Declined to provide - Nursing Vital Signs Nursing Vital Signs: Initial Vital Signs Temperature 97.3 F 06/09/24 17:40 Pulse Rate 94 H 06/09/24 17:40 Respiratory Rate 16 06/09/24 17:40 Blood Pressure 177/110 06/09/24 17:40 O2 Sat by Pulse Oximetry 99 06/09/24 17:40 Pain Scale Pain Intensity 0 - Physical Exam General Appearance: no apparent distress, alert Eye Exam: PERRL/EOMI, eyes nml inspection Ears, Nose, Throat Exam: normal ENT inspection, TMs normal, pharynx normal, moist mucous membranes Neck Exam: normal inspection, non-tender, supple, full range of motion Respiratory Exam: normal breath sounds, lungs clear, airway intact, No respiratory distress Cardiovascular Exam: regular rate/rhythm, normal heart sounds, normal peripheral pulses Gastrointestinal/Abdomen Exam: soft, normal bowel sounds, No tenderness, No mass Back Exam: normal inspection, normal range of motion, No CVA tenderness, No vertebral tenderness Extremity Exam: normal inspection, normal range of motion, pelvis stable Neurologic Exam: alert, oriented x 3, cooperative, normal mood/affect, sensation nml, No motor deficits Skin Exam: normal color, warm, dry, No rash Lymphatic Exam: No adenopathy SpO2 Interpretation: normal SpO2: 99 O2 Delivery: Room Air - Course Nursing assessment & vital signs reviewed: Yes EKG Interpreted by Me: RATE (64), Sinus Rhythm, NORMAL AXIS, NORMAL INTERVALS, Right Bundle Branch Block - CT Exams Abdomen/Pelvis CT Interpretation: Tele-radiologist Report (CT abdomen pelvis negative for acute intra-abdominal pathology, small hiatal hernia diffuse fecal stasis sigmoid diverticulosis.) Ordered Tests: Active Orders 24 hr Category Date Time Status Music Assistant STAT Care 06/09/24 17:48 Active EKG-ER Only STAT Care 06/09/24 17:48 Active IV Insertion STAT Care 06/09/24 17:48 Active Pulse Oximetry (ED) STAT Care 06/09/24 17:48 Active ABDOMEN AND PELVIS W/0 CONTRAS [CT] Stat Exams 06/09/24 18:34 Taken CBC W DIFF Stat Lab 06/09/24 18:30 Completed CMP Stat Lab 06/09/24 18:30 Completed CULTURE,URINE Stat Lab 06/09/24 20:37 Received Lactic Acid Stat Lab 06/09/24 17:48 Completed UA W/RFX UR CULTURE Stat Lab 06/09/24 20:37 Completed Medication Summary Discontinued Medications Generic Name Dose Route Start Last Admin Trade Name Mina PRN Reason Stop Dose Admin Sodium Chloride 1,000 mls @ 999 mls/hr 06/09/24 17:48 06/09/24 17:53 Sodium Chloride 0.9% 1000 Ml IV 06/09/24 18:48 999 mls/hr .Q1H1M STA Administration Sodium Chloride Confirm 06/09/24 17:51 Sodium Chloride 0.9% 1000 Ml Administered 06/09/24 17:52 Dose 1,000 mls @ ud .ROUTE .STK-MED ONE Ceftriaxone Sodium 1 gm in 100 mls @ 200 mls/hr 06/09/24 20:52 06/09/24 20:58 Rocephin 1 Gm / 100 Ml Nacl IV 06/09/24 21:21 200 ml/hr STAT ONE 200 mls/hr Administration Ceftriaxone Sodium Confirm 06/09/24 20:57 Rocephin 1 Gm / 100 Ml Nacl Administered 06/09/24 20:58 Dose 1 gm in 100 mls @ ud IV .STK-MED ONE Morphine Sulfate 2 mg 06/09/24 18:35 06/09/24 19:54 Morphine Sulfate 2 Mg/Ml Inj IV 06/09/24 18:36 2 mg STAT ONE Administration Morphine Sulfate Confirm 06/09/24 19:53 Morphine Sulfate 2 Mg/Ml Inj Administered 06/09/24 19:54 Dose 2 mg .ROUTE .STK-MED ONE Ondansetron HCl 4 mg 06/09/24 18:35 06/09/24 19:54 Ondansetron Hcl 4 Mg/2 Ml Vial IV 06/09/24 18:36 4 mg STAT ONE Administration Ondansetron HCl Confirm 06/09/24 19:53 Ondansetron Hcl 4 Mg/2 Ml Vial Administered 06/09/24 19:54 Dose 4 mg .ROUTE .STK-MED ONE Lab/Rad Data: Laboratory Result Diagrams 06/09/24 18:30 06/09/24 18:30 Laboratory Results 06/09/24 06/09/24 06/09/24 Range/Units 20:37 18:30 18:30 WBC 9.4 (3.98-10.04) x10^3/uL RBC 4.86 (3.93-5.22) x10^6/uL Hgb 12.6 (11.2-15.7) g/dL Hct 43.9 (34.1-44.9) % MCV 90.3 (79.4-94.8) fL MCH 25.9 (25.6-32.2) pg MCHC 28.7 L (32.2-35.5) g/dL RDW 14.3 (11.7-14.4) % Plt Count 412 H (182-369) x10^3/uL MPV 8.9 L (9.4-12.3) fL Gran % 72.0 H (34.0-71.1) % Immature Gran % (Auto) 0.3 (0.001-0.429) % Nucleat RBC Rel Count 0.0 (0.00-0.2) % Eos # (Auto) 0.08 (0.04-0.36) x10^3/uL Immature Gran # (Auto) 0.03 (0.001-0.031) x10^3u/L Absolute Lymphs (auto) 2.05 (1.18-3.74) x10^3/uL Absolute Monos (auto) 0.43 (0.24-0.86) x10^3/uL Absolute Nucleated RBC 0.00 (0.00-0.012) x10^3u/L Lymphocytes % 21.8 (19.3-51.7) % Monocytes % 4.6 L (4.7-12.5) % Eosinophils % 0.9 (0.7-5.8) % Basophils % 0.4 (0.1-1.2) % Absolute Granulocytes 6.78 H (1.56-6.13) x10^3/uL Basophils # 0.04 (0.01-0.08) x10^3/uL Sodium 135 (135-145) mmol/L Potassium 4.1 (3.5-5.1) mmol/L Chloride 99 (98-107) mmol/L Carbon Dioxide 25 (22-30) mmol/L Anion Gap 14.6 (5-15) MEQ/L BUN 37 H (7-17) mg/dL Creatinine 0.96 (0.52-1.04) mg/dL Estimated GFR 68.6 ML/MIN Glucose 148 H (74-106) mg/dL Lactic Acid (0.4-2.0) Calcium 9.4 (8.4-10.2) mg/dL Total Bilirubin 0.30 (0.2-1.3) mg/dL AST 22 (14-36) U/L ALT 25 (0-35) U/L Alkaline Phosphatase 166 H (38-126) U/L Serum Total Protein 7.4 (6.3-8.2) g/dL Albumin 4.1 (3.5-5.0) g/dL Urine Color Yellow (Yellow) Urine Appearance Cloudy A (Clear) Urine pH 7.0 (4.6-8.0) Ur Specific Harrison 1.020 (1.005-1.030) Urine Protein Trace A (Negative) Urine Glucose (UA) 100 A (Negative) mg/dL Urine Ketones Negative (Negative) Urine Blood Negative (Negative) Urine Nitrite Negative (Negative) Urine Bilirubin Negative (Negative) Urine Urobilinogen 0.2 (0.2) mg/dL Ur Leukocyte Esterase Large A (Negative) U Hyaline Cast (Auto) 3-5 A (0-2) /LPF Urine Microscopic RBC 3-5 (0-5) /HPF Urine Microscopic WBC 11-20 A (0-5) /HPF Ur Epithelial Cells Many A (None Seen) /HPF Urine Bacteria Moderate A (None Seen) /HPF Urine Culture Reflexed YES (NO) Influenza Type A Ag (NEGATIVE) Influenza Type B Ag (NEGATIVE) RSV (PCR) (NEGATIVE) SARS-CoV-2 (PCR) (NEGATIVE) 06/09/24 06/09/24 Range/Units 18:00 17:48 WBC (3.98-10.04) x10^3/uL RBC (3.93-5.22) x10^6/uL Hgb (11.2-15.7) g/dL Hct (34.1-44.9) % MCV (79.4-94.8) fL MCH (25.6-32.2) pg MCHC (32.2-35.5) g/dL RDW (11.7-14.4) % Plt Count (182-369) x10^3/uL MPV (9.4-12.3) fL Gran % (34.0-71.1) % Immature Gran % (Auto) (0.001-0.429) % Nucleat RBC Rel Count (0.00-0.2) % Eos # (Auto) (0.04-0.36) x10^3/uL Immature Gran # (Auto) (0.001-0.031) x10^3u/L Absolute Lymphs (auto) (1.18-3.74) x10^3/uL Absolute Monos (auto) (0.24-0.86) x10^3/uL Absolute Nucleated RBC (0.00-0.012) x10^3u/L Lymphocytes % (19.3-51.7) % Monocytes % (4.7-12.5) % Eosinophils % (0.7-5.8) % Basophils % (0.1-1.2) % Absolute Granulocytes (1.56-6.13) x10^3/uL Basophils # (0.01-0.08) x10^3/uL Sodium (135-145) mmol/L Potassium (3.5-5.1) mmol/L Chloride (98-107) mmol/L Carbon Dioxide (22-30) mmol/L Anion Gap (5-15) MEQ/L BUN (7-17) mg/dL Creatinine (0.52-1.04) mg/dL Estimated GFR ML/MIN Glucose (74-106) mg/dL Lactic Acid 1.7 (0.4-2.0) Calcium (8.4-10.2) mg/dL Total Bilirubin (0.2-1.3) mg/dL AST (14-36) U/L ALT (0-35) U/L Alkaline Phosphatase (38-126) U/L Serum Total Protein (6.3-8.2) g/dL Albumin (3.5-5.0) g/dL Urine Color (Yellow) Urine Appearance (Clear) Urine pH (4.6-8.0) Ur Specific Harrison (1.005-1.030) Urine Protein (Negative) Urine Glucose (UA) (Negative) mg/dL Urine Ketones (Negative) Urine Blood (Negative) Urine Nitrite (Negative) Urine Bilirubin (Negative) Urine Urobilinogen (0.2) mg/dL Ur Leukocyte Esterase (Negative) U Hyaline Cast (Auto) (0-2) /LPF Urine Microscopic RBC (0-5) /HPF Urine Microscopic WBC (0-5) /HPF Ur Epithelial Cells (None Seen) /HPF Urine Bacteria (None Seen) /HPF Urine Culture Reflexed (NO) Influenza Type A Ag NEGATIVE (NEGATIVE) Influenza Type B Ag NEGATIVE (NEGATIVE) RSV (PCR) NEGATIVE (NEGATIVE) SARS-CoV-2 (PCR) NEGATIVE (NEGATIVE) - Progress Progress: improved Progress Note: Patient reassessed. She feels well. Headache resolved. Patient received liter normal saline. Patient was delayed in providing us a urinalysis however now she is able to do so. Laboratory workup suggestive of dehydration based on history physical exam and BUN/creatinine ratio. CT abdomen pelvis essentially negative for acute pathology. However however there is a significant amount of fecal burden observed. Patient otherwise feels well. at bedside. They voiced no other complaints or concerns at this time. UA reveals UTI Ceftriaxone 1g administered. Portions of this note were created with voice recognition technology. There may be grammatical, spelling, punctuation or sound alike errors Complexity problem addressed is moderate acute complicated. No critical care time. Complex of data reviewed and analyzed is moderate. Test ordered test reviewed results analyzed and correlated clinically with history and physical exam. Risk complication and or risk morbidity/mortality patient management is moderate. Prescription for Keflex forwarded to patient's family. Vital stable. Time spent to discharge patient approximately 20 minutes. Plan of care established for shared decision making. No social determinants of health present impede follow-up. Portions of this note were created with voice recognition technology. There may be grammatical, spelling, punctuation or sound alike errors 06/09/24 20:26 06/09/24 20:26 Counseled pt/family regarding: lab results, diagnosis - Departure Departure Disposition: Home Clinical Impression: Dehydration, Constipation, UTI (urinary tract infection) Condition: Stable Critical Care Time: No Referrals: ALEC EL [Primary Care Provider] - Follow up/PCP as directed Additional Instructions: Discharge/Care Plan DUQUELEONIDAS ARREOLA was seen on 06/09/24 in the Emergency Room. The patient was counseled regarding Diagnosis,Lab results, Imaging studies, need for follow up and when to return to the Emergency Room. Prescriptions given: Discharge Note I have spoken with the patient and/or caregivers. I have explained the patient's condition, diagnosis and treatment plan based on the information available to me at this time. I have answered the patient's and/or caregiver's questions and addressed any concerns. The patient and/or caregivers have as good understanding of the patient's diagnosis, condition and treatment plan as can be expected at this point. The vital signs have been stable. The patient's condition is stable and appropriate for discharge from the emergency department. The patient will pursue further outpatient evaluation with the primary care physician or other designated or consulting physician as outlined in the discharge instructions. The patient and/or caregivers are agreeable to this plan of care and follow-up instructions have been explained in detail. The patient and/or caregivers have received these instruction. The patient/and or caregivers are aware that any significant change in condition or worsening of symptoms should prompt an immediate return to this or the closest emergency department or call 911. Prescriptions: Cephalexin Mh 500 mg [Keflex 500 mg] 500 mg PO TID 7 Days #21 cap
[2024-06-09 18:42] LABS: INFLUENZA A NEGATIVE (NEGATIVE); INFLUENZA B NEGATIVE (NEGATIVE); RESPIRATORY SYNCTIAL VIRUS NEGATIVE (NEGATIVE); SARS-CoV-2 Xpert Express NEGATIVE (NEGATIVE)
[2024-06-09 18:49] LABS: Absolute Neutrophil Ct (ANC) 6.78 x10^3/uL (1.56-6.13); BASOPHIL % 0.4 % (0.1-1.2); Basophil (Absolute #) 0.04 x10^3/uL (0.01-0.08); Eosinophil % 0.9 % (0.7-5.8); Eosinophil (Absolute #) 0.08 x10^3/uL (0.04-0.36); Hematocrit 43.9 % (34.1-44.9); Hemoglobin 12.6 g/dL (11.2-15.7); IMMATURE GRAN # 0.03 x10^3u/L (0.001-0.031); IMMATURE GRAN % 0.3 % (0.001-0.429); Lymphocyte (Absolute #) 2.05 x10^3/uL (1.18-3.74); Lymphocytes % 21.8 % (19.3-51.7); Mean Cell Volume 90.3 fL (79.4-94.8); Mean Corpuscular Hemoglobin 25.9 pg (25.6-32.2); Mean Corpuscular Hgb Concent. 28.7 g/dL (32.2-35.5); Mean Platelet Volume 8.9 fL (9.4-12.3); Monocyte (Absolute #) 0.43 x10^3/uL (0.24-0.86); Monocytes % 4.6 % (4.7-12.5); Platelet Count 412 x10^3/uL (182-369); Red Blood Count 4.86 x10^6/uL (3.93-5.22); Red Cell Distribution Width 14.3 % (11.7-14.4); White Blood Count 9.4 x10^3/uL (3.98-10.04)
[2024-06-09 19:37] LABS: ALBUMIN 4.1 g/dL (3.5-5.0); ANION GAP 14.6 MEQ/L (5-15); BILIRUBIN,TOTAL 0.3 mg/dL (0.2-1.3); Calcium 9.4 mg/dL (8.4-10.2); Creatinine 1 0.96 mg/dL (0.52-1.04); EST GLOMERULAR FILTRATION RATE 68.6 ML/MIN; Potassium 4.1 mmol/L (3.5-5.1); Total Protein 7.4 g/dL (6.3-8.2)
[2024-06-09] MEDS ORDERED: Zofran 4 MG/2 ML VIAL ONE (19:53)
[2024-06-09] MEDS ORDERED: MORPHINE SULFATE 2 MG INJ ONE (19:53)
[2024-06-09] MEDS: Zofran 4 MG/2 ML VIAL IV ONE (19:54)
[2024-06-09] MEDS: MORPHINE SULFATE 2 MG INJ IV ONE (19:54)
[2024-06-09 20:45] LABS: Appearance Cloudy (Clear); Bacteria Moderate /HPF (None Seen); Bilirubin Negative (Negative); Blood Negative (Negative); Epithelial Cells Many /HPF (None Seen); Glucose, Urine 100 mg/dL (Negative); Ketones Negative (Negative); Leukocyte Esterase Large (Negative); Nitrite Negative (Negative); Protein,Urine Dip Trace (Negative); Urobilinogen 0.2 mg/dL (0.2)
[2024-06-09 20:46] LABS: ADD URINE CULTURE? YES (NO)
[2024-06-09 20:48] VITALS: BP 219/108; PULSE 70; RESP 14
[2024-06-09] MEDS ORDERED: ROCEPHIN 1 GM / 100 ML NaCl 1 GM/100 ML IVPB IV ONE (20:57)
[2024-06-09] MEDS: ROCEPHIN 1 GM / 100 ML NaCl 1 GM/100 ML IVPB IV ONE (20:58)
[2024-06-09 21:09] VITALS: O2SAT 99
--- NOTE | 2024-06-10 08:39 | XRAY ---
Indication: Abdominal pain. Multiple contiguous axial images obtained through the abdomen and pelvis without contrast. Comparison: CT abdomen May 22, 2019 Lung bases clear. Heart not enlarged. Stable small hiatal hernia. Noncontrasted stomach and bowel loops appear nonobstructed again with normal appendix. Mild diffuse scattered colonic fecal debris, mild sigmoid diverticulosis, hysterectomy, and cholecystectomy. No free fluid/air. Remaining liver, pancreas, spleen, adrenal glands, kidneys, ureters, and bladder are unremarkable for noncontrast exam. Again mild scattered aortoiliac calcifications without AAA. Osseous structures intact with progressive worsening mild/moderate degenerative changes throughout the visualized spine. Mild degenerative changes both hips not previously included. Impression: Again hiatal hernia, mild diffuse fecal stasis, sigmoid diverticulosis, arteriosclerotic disease, and chronic bony findings. No new/acute findings on this noncontrast exam.
== END 2024-06-09 21:59 | disposition home or self-care (01) ==
LOC: ED 17:32
DX: E86.0 Dehydration (principal); K59.00 Constipation, unspecified; N39.0 Urinary tract infection, site not specified; R51.9 Headache, unspecified; M79.10 Myalgia, unspecified site; R10.9 Unspecified abdominal pain; R53.1 Weakness; I10 Essential (primary) hypertension; E11.9 Type 2 diabetes mellitus without complications; Z79.899 Other long term (current) drug therapy
CPT/HCPCS: 0241U; 36000; 36415; 74176; 80053; 81001; 83605; 85025; 87086; 93005; 93041; 94760; 96360; 96365; 96374; 96375; 99284; J0696; J2270; J2405